=== PATIENT | female | born 1940 | race Caucasian/White ===

== ENCOUNTER 2017-09-25 15:33 | Emergency (ER) | payer MEDICARE, OTHER ==
[~2017-09-25] VITALS: Ht 160 cm; Wt 65.0 kg
[~2017-09-25 15:33] MED LIST: ALPR1TAB3 PO; ARIC10TA PO; BUSP10 PO; PROM25TA5 PO; TEMA30CA PO; ULTR50TA PO
[2017-09-25 15:42] VITALS: BP 135/81; PULSE 82; RESP 16; TEMP 98.1; O2SAT 98
--- NOTE | 2017-09-25 15:48 | PD ---
HPI Chief Complaint: Fall Time Seen by Provider: 15:47 Travel History International Travel<30 days: No Contact w/Intl Traveler<30days: No Traveled to known affect area: No History of Present Illness HPI 76-year-old female was [facility] after she fell and hit her head. Patient has history of frequent falls mainly for dizziness. Her granddaughter is here who says that she refuses to use her walker. Patient is not complaining of anything else besides some pain on the scalp region where she hit her head. Vital signs are stable. [facility] Past Medical History Narrative Medical List of her past medical, surgical, social and family history is reviewed from the nursing note. Autoimmune Disease: No Anxiety: Yes Depression: Yes Cancer: Yes (melanoma) Cardiovascular Problems: Yes (HTN) High Cholesterol: Yes Chemotherapy: No Dementia: Yes Diabetes: No Diminished Hearing: No Endocrine: No Genitourinary: No Hypertension: Yes Immune Disorder: No Musculoskeletal: No Neurologic: Yes (VERTIGO) Psychiatric: Yes Reproductive: No Respiratory: No Immunizations Current: Yes Radiation Therapy: No Tetanus Vaccination: > 5 Years Influenza Vaccination: No ?: Not Menopausal: Yes : 3 Para: 3 Past Surgical History Abdominal Surgery: Yes (gull bladder removal) Cholecystectomy: Yes Eye Surgery: Yes (CATARACT) Gynecologic Surgery: Yes (partial hyst.) Hysterectomy: Yes Pacemaker: No Social History Alcohol Use: No Tobacco Use: No ( HX SNUFF DAILY) Substance Use: No Allergies-Medications (Allergen,Severity, Reaction): Coded Allergies: penicillin G (Unverified Allergy, Severe, 09/25/17) HIVES morphine (Unverified Allergy, Mild, 09/25/17) Comments List of her allergies reviewed from the nursing note. Reported Meds & Prescriptions Reported Meds & Active Scripts Active Reported Xanax (Alprazolam) 1 Mg Tab 1 Mg PO BID PRN Robafen Dm 100-10 mg/5Ml (Dextromethorphan-Guaifenesin) 100 Mg-10 Mg/5 Ml Syp 10 Ml PO Q6HR PRN Meclizine (Meclizine HCl) 12.5 Mg Tab 12.5 Mg PO BID 21 Days Phenergan (Promethazine HCl) 25 Mg Tablet 25 Mg PO TID PRN Remeron (Mirtazapine) 15 Mg Tab 15 Mg PO HS Lisinopril 10 Mg Tab 10 Mg PO DAILY Synthroid (Levothyroxine Sodium) 25 Mcg Tab 25 Mcg PO DAILY Aricept (Donepezil HCl) 10 Mg Tablet 10 Mg PO HS Celexa (Citalopram Hydrobromide) 20 Mg Tab 20 Mg PO DAILY Buspirone (Buspirone HCl) 10 Mg Tab 10 Mg PO BID Lipitor (Atorvastatin Calcium) 10 Mg Tab 10 Mg PO HS Aspirin 325 Mg Tab 325 Mg PO DAILY [place] (Hydrocodone-Acetaminophen) 5 Mg-325 Mg Tab 1 Tab PO Q6H PRN Enema Disposable (Sodium Phosphates) 19 Gram-7 Gram/118 Ml Yue 1 Applic RECTAL ON 4TH DAY PRN Milk of Magnesia Liq (Magnesium Hydroxide) 400 Mg/5 Ml Susp 30 Ml PO PRN Dulcolax Supp (Bisacodyl) 10 Mg Supp 10 Mg RECTAL DAILY PRN Narrative Medication List of her home medications reviewed from the nursing note. Review of Systems Except as stated in HPI: all other systems reviewed are Neg Physical Exam Narrative GENERAL: Awake, alert, elderly SKIN: Focused skin assessment warm/dry. HEAD: Tender on the left occipital area EYES: Pupils equal and round. No scleral icterus. No injection or drainage. ENT: No nasal bleeding or discharge. Mucous membranes pink and moist. NECK: Trachea midline. No JVD. CARDIOVASCULAR: Regular rate and rhythm. No murmur appreciated. RESPIRATORY: No accessory muscle use. Clear to auscultation. Breath sounds equal bilaterally. GASTROINTESTINAL: Abdomen soft, non-tender, nondistended. Hepatic and splenic margins not palpable. MUSCULOSKELETAL: No obvious deformities. No clubbing. No cyanosis. No edema. NEUROLOGICAL: Awake and alert. No obvious cranial nerve deficits. Motor grossly within normal limits. Normal speech. PSYCHIATRIC: Appropriate mood and affect; insight and judgment normal. Data Data Last Documented VS Orders Orders Ct Brain W/O Iv Contrast(Rout) (09/25/17 ) Acetaminophen (Tylenol) (09/25/17 19:00) [facility] Medical Decision Making Medical Screen Exam Complete: Yes Emergency Medical Condition: Yes Medical Record Reviewed: Yes Differential Diagnosis Intracranial bleed, skull fracture, hematoma Narrative Course 6:[address] is negative. Patient will be [facility] back to the [facility]. Procedures EKG Prior to Arrival: No Diagnosis Primary Impression: Frequent falls Additional Impression: Head injury Qualified Codes: S09.90XA - Unspecified injury of head, initial encounter Referrals: Primary Care Physician Additional Instructions: Should use a walker for ambulating since he had such frequent falls. Return to the ER if condition worsens or any other new concerns. Otherwise follow-up with your primary care. Disposition: 01 DISCHARGE HOME Condition: Stable Chelly Scales MD Sep 25, 2017 15:48
[2017-09-25] MEDS ORDERED: ARIC10TA9 PO (16:55)
[2017-09-25] MEDS ORDERED: REME15TA PO (16:55)
[2017-09-25] MEDS ORDERED: LIPI10TA PO (16:55)
[2017-09-25] MEDS ORDERED: LISI10TA3 PO (16:55)
[2017-09-25] MEDS ORDERED: PROM25TA10 PO (16:55)
[2017-09-25] MEDS ORDERED: MECL12.574 PO (16:55)
[2017-09-25] MEDS ORDERED: BUSP10TA PO (16:55)
[2017-09-25] MEDS ORDERED: XANA1TAB2 PO (16:55)
[2017-09-25] MEDS ORDERED: CELE20TA PO (16:55)
[2017-09-25] MEDS ORDERED: DULC10SU3 RECTAL (16:55)
[2017-09-25] MEDS ORDERED: ASPI-183 PO (16:55)
[2017-09-25] MEDS ORDERED: SYNT25TA PO (16:55)
[2017-09-25] MEDS ORDERED: NORC5TAB PO (16:55)
[2017-09-25] MEDS ORDERED: MILKSUS PO (16:55)
[2017-09-25] MEDS ORDERED: ROBA100S PO (16:55)
[2017-09-25] MEDS ORDERED: ENEMENE5 RECTAL (16:55)
--- NOTE | 2017-09-25 17:59 | RADRPT ---
EXAM DATE/TIME: 09/25/2017 17:47 [facility] COMPARISON: CT BRAIN W/O CONTRAST, October 11, 2015, 3:28. INDICATIONS : Head pain due to fall out of bed. RADIATION DOSE: 33.45 CTDIvol (mGy) MEDICAL HISTORY : Dementia. Hypertension. Vertigo. SURGICAL HISTORY : Cholecystectomy. Hysterectomy.Melanoma ENCOUNTER: Initial ACUITY: 1 day PAIN SCALE: 3/10 LOCATION: Bilateral cranial TECHNIQUE: Multiple contiguous axial images were obtained of the head. Using automated exposure control and adj ustment of the mA and/or kV according to patient size, radiation dose was kept as low as reasonably a chievable to obtain optimal diagnostic quality images. DICOM format image data is available electro nically for review and comparison. FINDINGS: There is patchy mild diminished attenuation in periventricular white matter which appears stable and benign. No evidence of intracranial hemorrhage or mass. There is nothing to suggest acute infarction. Ventricles and extra-axial sulcal spaces are symmetric and stable. Extracranial structures are benig n and intact. CONCLUSION: No acute intracranial injury Con Ovalles MD on September 25, 2017 at 17:56 Board Certified Radiologist. This report was verified electronically.
[2017-09-25] MEDS ORDERED: ACETAMINOPHEN 325 MG TAB PO ONE (19:00)
== END 2017-09-25 19:36 | disposition home or self-care (01) ==
LOC: NEPC 15:33
DX: S09.90XA Unspecified injury of head, initial encounter (principal); R29.6 Repeated falls; W06.XXXA Fall from bed, initial encounter; Y92.129 Unspecified place in nursing home as the place of occurrence of the external cause
CPT/HCPCS: 70450; 99284

== ENCOUNTER 2017-10-29 18:58 | Inpatient (IN) | payer MEDICARE ==
[~2017-10-29] VITALS: Ht 154.9 cm; Wt 66.8 kg
[~2017-10-29 18:58] MED LIST changes: -ALPR1TAB3 PO; -ARIC10TA PO; +ARIC10TA9 PO; +ASPI-183 PO; -BUSP10 PO; +BUSP10TA PO; +CELE20TA PO; +DULC10SU3 RECTAL; +ENEMENE5 RECTAL; +LIPI10TA PO; +LISI10TA3 PO; +MECL12.574 PO; +MILKSUS PO; +NORC5TAB PO; +PROM25TA10 PO; -PROM25TA5 PO; +REME15TA PO; +ROBA100S PO; +SYNT25TA PO; -TEMA30CA PO; -ULTR50TA PO; +XANA1TAB2 PO
[2017-10-29 19:19] VITALS: BP 126/61; PULSE 69; RESP 18; TEMP 97.8; O2SAT 99
[2017-10-29] MEDS ORDERED: SODIUM CHLORIDE 0.9% FLUSH 10 ML FLUSH IV FLUSH PRN ×2 (19:45→22:00)
[2017-10-29] MEDS ORDERED: DIPHTH/TETANUS/ACEL PERTUSSIS (BOOSTER) 0.5 ML VIAL/PFS IM ONE (19:45)
[2017-10-29] MEDS ORDERED: ACETAMINOPHEN 325 MG TAB PO ONE (19:45)
--- NOTE | 2017-10-29 20:12 | PD ---
HPI Chief Complaint: Fall Time Seen by Provider: 19:26 Travel History International Travel<30 days: No Contact w/Intl Traveler<30days: No Traveled to known affect area: No History of Present Illness HPI Patient is a 76-year-old female who presents to emergency room via [facility] for evaluation of right elbow injury. Patient reports that she was getting out of her car when she fell and landed onto her right elbow. Denies loc, denies trauma to her head/neck. Patient reports that the brunt of her fall was onto her right elbow. Patient does take an aspirin daily - she currently is not on any other anticoagulants. Denies chest pain/sob. Denies abdominal pain. Reports pain only to her right elbow. PFSH Past Medical History Autoimmune Disease: No Anxiety: Yes Depression: Yes Cancer: Yes (melanoma) Cardiovascular Problems: Yes (HTN) High Cholesterol: Yes Chemotherapy: No Cerebrovascular Accident: Yes (AU[place]UST) Dementia: Yes Diabetes: No Diminished Hearing: No Endocrine: No Genitourinary: No Hypertension: Yes Immune Disorder: No Musculoskeletal: No Neurologic: Yes (VERTIGO) Psychiatric: Yes Reproductive: No Respiratory: No Immunizations Current: Yes Radiation Therapy: No Menopausal: Yes : 3 Para: 3 Past Surgical History Abdominal Surgery: Yes (gall bladder removal) Cholecystectomy: Yes Eye Surgery: Yes (CATARACT) Gynecologic Surgery: Yes (partial hyst.) Hysterectomy: Yes Pacemaker: No Social History Alcohol Use: No Tobacco Use: No ( HX SNUFF DAILY) Substance Use: No Allergies-Medications (Allergen,Severity, Reaction): Coded Allergies: penicillin G (Unverified Allergy, Severe, 10/29/17) HIVES morphine (Unverified Allergy, Mild, 10/29/17) Reported Meds & Prescriptions Reported Meds & Active Scripts Active Reported Xanax (Alprazolam) 1 Mg Tab 1 Mg PO BID PRN Robafen Dm 100-10 mg/5Ml (Dextromethorphan-Guaifenesin) 100 Mg-10 Mg/5 Ml Syp 10 Ml PO Q6HR PRN Meclizine (Meclizine HCl) 12.5 Mg Tab 12.5 Mg PO BID 21 Days Phenergan (Promethazine HCl) 25 Mg Tablet 25 Mg PO TID PRN Remeron (Mirtazapine) 15 Mg Tab 15 Mg PO HS Lisinopril 10 Mg Tab 10 Mg PO DAILY Synthroid (Levothyroxine Sodium) 25 Mcg Tab 25 Mcg PO DAILY Aricept (Donepezil HCl) 10 Mg Tablet 10 Mg PO HS Celexa (Citalopram Hydrobromide) 20 Mg Tab 20 Mg PO DAILY Buspirone (Buspirone HCl) 10 Mg Tab 10 Mg PO BID Lipitor (Atorvastatin Calcium) 10 Mg Tab 10 Mg PO HS Aspirin 325 Mg Tab 325 Mg PO DAILY [place] (Hydrocodone-Acetaminophen) 5 Mg-325 Mg Tab 1 Tab PO Q6H PRN Enema Disposable (Sodium Phosphates) 19 Gram-7 Gram/118 Ml Yue 1 Applic RECTAL ON 4TH DAY PRN Milk of Magnesia Liq (Magnesium Hydroxide) 400 Mg/5 Ml Susp 30 Ml PO PRN Dulcolax Supp (Bisacodyl) 10 Mg Supp 10 Mg RECTAL DAILY PRN Review of Systems General / Constitutional: No: Fever Eyes: No: Visual changes HENT: No: Headaches Cardiovascular: No: Chest Pain or Discomfort Respiratory: No: Shortness of Breath Gastrointestinal: No: Abdominal Pain Genitourinary: No: Dysuria Musculoskeletal: Positive: Limited ROM, Pain (right elbow) Skin: No Rash Neurologic: No: Weakness Psychiatric: No: Depression Endocrine: No: Polydipsia Hematologic/Lymphatic: No: Easy Bruising Physical Exam Narrative GENERAL: moderate distress SKIN: Focused skin assessment warm/dry. HEAD: Atraumatic. Normocephalic. EYES: Pupils equal and round. No scleral icterus. No injection or drainage. ENT: No nasal bleeding or discharge. Mucous membranes pink and moist. NECK: Trachea midline. No JVD. CARDIOVASCULAR: Regular rate and rhythm. No murmur appreciated. RESPIRATORY: No accessory muscle use. Clear to auscultation. Breath sounds equal bilaterally. GASTROINTESTINAL: Abdomen soft, non-tender, nondistended. Hepatic and splenic margins not palpable. MUSCULOSKELETAL:Patient with obvious deformity to right elbow with small laceration. pain with rom to right shoulder and right elbow, normal rom to right wrist and digits of fingers, pulses intact, neurovascularly intact LUE: normal exam NEUROLOGICAL: Awake and alert. No obvious cranial nerve deficits. Motor grossly within normal limits. Normal speech. PSYCHIATRIC: Appropriate mood and affect; insight and judgment normal. Data Data Last Documented VS Vital Signs Date Time Temp Pulse Resp B/P (MAP) Pulse Ox O2 Delivery O2 Flow Rate FiO2 10/29/17 19:23 69 18 99 Room Air 10/29/17 19:19 97.8 126/61 (82) Orders Orders Elbow, Complete (4 Vws) (10/29/17 ) Acetaminophen (Tylenol) (10/29/17 19:45) Basic Metabolic Panel (Bmp) (10/29/17 19:36) Complete Blood Count With Diff (10/29/17 19:36) Prothrombin Time / Inr (Pt) (10/29/17 19:36) Act Partial Throm Time (Ptt) (10/29/17 19:36) Iv Access Insert/Monitor (10/29/17 19:36) Ecg Monitoring (10/29/17 19:36) Oximetry (10/29/17 19:36) NPO (10/29/17 19:36) Sodium Chloride 0.9% Flush (Ns Flush) (10/29/17 19:45) Chest, Single Ap (10/29/17 19:36) [id number]-Rfgdyb (Booster) Inj (Boostrix (10/29/17 19:45) Shoulder, One View (10/29/17 ) Cefazolin 2 Gm Premix (Ancef 2 Gm Premix (10/29/17 21:15) Propofol 200 Mg/20 Ml Inj (Diprivan 200 (10/29/17 21:15) Consult Orthopedic (10/29/17 ) Admit Order (Ed Use Only) (10/29/17 21:18) (Hub Use Only)Inp Phy Cons/Ref (10/29/17 ) Labs Laboratory Tests Test 10/29/17 19:40 10/29/17 20:40 White Blood Count 10.1 TH/MM3 Red Blood Count 3.37 MIL/MM3 Hemoglobin 10.5 GM/DL Hematocrit 30.7 % Mean Corpuscular Volume 91.1 FL Mean Corpuscular Hemoglobin 31.2 PG Mean Corpuscular Hemoglobin Concent 34.3 % Red Cell Distribution Width 12.4 % Platelet Count 312 TH/MM3 Mean Platelet Volume 7.7 FL Neutrophils (%) (Auto) 54.6 % Lymphocytes (%) (Auto) 31.9 % Monocytes (%) (Auto) 8.6 % Eosinophils (%) (Auto) 4.1 % Basophils (%) (Auto) 0.8 % Neutrophils # (Auto) 5.5 TH/MM3 Lymphocytes # (Auto) 3.2 TH/MM3 Monocytes # (Auto) 0.9 TH/MM3 Eosinophils # (Auto) 0.4 TH/MM3 Basophils # (Auto) 0.1 TH/MM3 CBC Comment DIFF FINAL Differential Comment Blood Urea Nitrogen 37 MG/DL Creatinine 2.75 MG/DL Random Glucose 104 MG/DL Calcium Level 9.3 MG/DL Sodium Level 134 MEQ/L Potassium Level 4.6 MEQ/L Chloride Level 101 MEQ/L Carbon Dioxide Level 24.7 MEQ/L Anion Gap 8 MEQ/L Estimat Glomerular Filtration Rate 17 ML/MIN MDM Medical Decision Making Medical Screen Exam Complete: Yes Emergency Medical Condition: Yes Interpretation(s) Vital Signs Date Time Temp Pulse Resp B/P (MAP) Pulse Ox O2 Delivery O2 Flow Rate FiO2 10/29/17 19:23 69 18 99 Room Air 10/29/17 19:19 97.8 69 18 126/61 (82) 99 Differential Diagnosis elbow fracture, shoulder fx/sprain, pneumothorax Narrative Course During the course of the patients emergency department visit, the patients history, examination, and differential diagnosis were reviewed with the patient. The patient was placed on a wireless consultant with oximetry and frequent blood pressure monitoring. The patient had an IV access obtained and blood work sent for analysis. The patient was initially provided acetaminophen for fever. The patients laboratory studies were reviewed and remarkable for: CBC & BMP Diagram 10/29/17 19:40 Calcium Level 9.3 Radiology studies were reviewed and remarkable for Last Impressions Chest X-Ray 10/29/17 1936 Signed Impressions: Service Date/Time: Sunday, October 29, 2017 20:10 - CONCLUSION: Possible mild case of pulmonary edema. Karla Rueda MD Shoulder X-Ray 10/29/17 0000 Signed Impressions: Service Date/Time: Sunday, October 29, 2017 20:08 - CONCLUSION: Unremarkable study. Karla Rueda MD Elbow X-Ray 10/29/17 0000 Signed Impressions: Service Date/Time: Sunday, October 29, 2017 20:05 - CONCLUSION: Comminuted and complex fracture dislocation. Karla Rueda MD Patient with alisha as well as open fx to right elbow. i reviewed all studies with patient and her family. she will require admission to the hospital. case reviewed with Dr. Tao - request reduction in the ER, plan for OR in the AM. Dr. Rinaldi was called - he is not taking call today, request admission to be given to or [facility] Case reviewed with Dr. Cleaning who accepts pt to service Procedures Procedure Narrative After the risks and benefits were discussed the following procedure was performed: MODERATE SEDATION: The patient was placed on a wireless consultant and pulse oximetry. An ambu bag and suction was immediately available at bedside. The patient was monitored by the nurse. Oxygen saturation , heart rate and blood pressure were monitored. Procedural sedation was acheived using 50mg of propofol . The patient was observed until awake and alert. Procedural Sedation time in attendance was 20 minutes. Right elbow reduction: Patient was placed into supine position, patient's forearm was supinated with elbow flexed with direct pressure placed on the tip of the olecranon. elbow was reduced but unstable. After elbow was reduced, patient was placed in splint. Reduction was partially successful, due to instability of joint, another attempt at reduction was not performed. Diagnosis Primary Impression: Fracture, humerus, distal, open Qualified Codes: S42.491B - Other displaced fracture of lower end of right humerus, initial encounter for open fracture Additional Impression: Renal insufficiency Admitting Information Admitting Physician Requests: Observation Anette Cooper DO Oct 29, 2017 20:12
[2017-10-29 20:20] LABS: AUTOMATED NEUTROPHIL # 5.5 TH/MM3 (1.8-7.7); BASOPHIL # 0.1 TH/MM3 (0-0.2); BASOPHIL % 0.8 % (0.0-2.0); EOSINOPHIL # 0.4 TH/MM3 (0-0.4); EOSINOPHIL % 4.1 % (0.0-4.0); HEMATOCRIT 30.7 % (35.0-46.0); HEMOGLOBIN 10.5 GM/DL (11.6-15.3); LYMPH % 31.9 % (9.0-44.0); LYMPHOCYTE # 3.2 TH/MM3 (1.0-4.8); MEAN CELL VOLUME 91.1 FL (80.0-100.0); MEAN CORPUSCULAR HEMOGLOBIN 31.2 PG (27.0-34.0); MEAN CORPUSCULAR HGB CONC 34.3 % (32.0-36.0); MEAN PLATELET VOLUME 7.7 FL (7.0-11.0); MONO % 8.6 % (0.0-8.0); MONOCYTE # 0.9 TH/MM3 (0-0.9); NEUT % 54.6 % (16.0-70.0); PLATELET COUNT 312 TH/MM3 (150-450); RED BLOOD COUNT 3.37 MIL/MM3 (4.00-5.30); RED CELL DISTRIBUTION WIDTH 12.4 % (11.6-17.2); WHITE BLOOD COUNT 10.1 TH/MM3 (4.0-11.0)
[2017-10-29 20:38] LABS: BICARBONATE 24.7 MEQ/L (21.0-32.0); CALCIUM 9.3 MG/DL (8.5-10.1); CREATININE 2.75 MG/DL (0.50-1.00)
--- NOTE | 2017-10-29 20:48 | RADRPT ---
EXAM DATE/TIME: 10/29/2017 20:05 [facility] COMPARISON: No previous studies available for comparison. INDICATIONS : Fall today. Right posterior elbow pain. MEDICAL HISTORY : None. SURGICAL HISTORY : None. ENCOUNTER: Initial ACUITY: 1 day PAIN SCORE: 10/10 LOCATION: Right elbow. FINDINGS: There is a complex comminuted fracture of distal humerus which extends intra-articularly with displac ement of fracture fragments. There is overriding of the metaphysis dorsal to ulna with significant di splacement/dislocation in addition to significant joint effusion and soft tissue swelling. CONCLUSION: Comminuted and complex fracture dislocation. Karla Rueda MD on October 29, 2017 at 20:43 Board Certified Radiologist. This report was verified electronically.
--- NOTE | 2017-10-29 20:48 | RADRPT ---
EXAM DATE/TIME: 10/29/2017 20:08 [facility] COMPARISON: No previous studies available for comparison. INDICATIONS : Fall Today. Trauma. MEDICAL HISTORY : None. SURGICAL HISTORY : None. ENCOUNTER: Initial ACUITY: 1 day PAIN SCORE: 2/10 LOCATION: Right shoulder. FINDINGS: No definite fractures, or dislocations are identified. No definite lytic or sclerotic lesion is seen . CONCLUSION: Unremarkable study. Karla Rueda MD on October 29, 2017 at 20:46 Board Certified Radiologist. This report was verified electronically.
--- NOTE | 2017-10-29 20:49 | RADRPT ---
EXAM DATE/TIME: 10/29/2017 20:10 [facility] COMPARISON: No previous studies available for comparison. INDICATIONS : Fall Today. Trauma MEDICAL HISTORY : None. SURGICAL HISTORY : None. ENCOUNTER: Initial ACUITY: 1 day PAIN SCORE: 0/10 LOCATION: Bilateral chest. FINDINGS: There is mild degree of perivascular haziness may represent slight pulmonary edema. Focal consolidati on is not seen. Heart and mediastinum are unremarkable for technique. There are atherosclerotic calci fications of the aorta due to chronic atherosclerotic disease. CONCLUSION: Possible mild case of pulmonary edema. Karla Rueda MD on October 29, 2017 at 20:47 Board Certified Radiologist. This report was verified electronically.
[2017-10-29] MEDS ORDERED: ceFAZolin 2 GM PREMIX 50 ML IV ONE (21:15)
[2017-10-29] MEDS ORDERED: PROPOFOL 200 MG/20 ML AMP IV ONE (21:15)
--- NOTE | 2017-10-29 21:54 | HHI.HP ---
HPI Service Family Medicine Primary Care Physician Michael Rinaldi MD Admission Diagnosis open distal humerus fracture, renal insuffiency Diagnoses: International Travel<30 Days: No Contact w/Intl Traveler<30days: No Known Affected Area: No History of Present Illness 76 yr old F w/ PMHx of Alz's dementia,frequent falls, depression, and HTN presents to the ED via [facility] due to fall. Accompanied by daughter and niece. Limited history provided by patient due to dementia. Rest of the history provided by family. She reports that she was getting out of the car when she slipped and fell on the road. She is unsure how she fell. She has a bruise on her face, pain in her right arm, and scraps on her right knee. She is able to wiggle her right fingers and has intact sensation. She denies LOC or hitting her head. She endorses slight HOYT. She denies vision changes, CP, N/V, SOB, and abdominal pain. Last meal was around 1300. Niece states that she has a hx of intermittent leg weakness and suspects this is the cause of the incident. Review of Systems ROS Limitations: Other (Dementia) Constitutional: DENIES: Fever, Weight loss, Dizziness Eyes: DENIES: Blurred vision Ears, nose, mouth, throat: DENIES: Vertigo, Throat pain, Ear Pain Respiratory: DENIES: Shortness of breath Cardiovascular: DENIES: Chest pain Gastrointestinal: DENIES: Abdominal pain, Nausea, Vomiting Genitourinary: DENIES: Dysuria Musculoskeletal: COMPLAINS OF: Joint pain (right elbow pain) Hematologic/lymphatic: COMPLAINS OF: Bruising (bruises due to fall ) Neurologic: COMPLAINS OF: Headache (mild HOYT ) Past Family Social History Past Medical History Alz's Dementia HTN Anxiety HLD Herniated discs Claustrophobia Currently being workup by outpatient for paroxysmal afib Stroke in July 2017 Hypothyroidism Past Surgical History Eye surgery Hysterectomy Back surgery Allergies: Coded Allergies: penicillin G (Unverified Allergy, Severe, 10/29/17) HIVES morphine (Unverified Allergy, Mild, 10/29/17) Family History Depression Mom in 80s from lung cancer Dad in 90s from Alz's dementia Social History Lives alone with . Unable to do ADLs and IADLs. Sister lives nearby Has 1 cat and 1 dog Former smoker, 1ppd for 13 years, quit years ago Admits to Dipping Denies alcohol and illicit drug use Physical Exam Vital Signs Vital Signs Date Time Temp Pulse Resp B/P (MAP) Pulse Ox O2 Delivery O2 Flow Rate FiO2 10/29/17 19:23 69 18 99 Room Air 10/29/17 19:19 97.8 69 18 126/61 (82) 99 Physical Exam GENERAL: pleasant, elderly female, lying in bed, in NAD SKIN: bruise on right cheek, abrasions on right elbow, small abrasion on right cárdenas HEAD: Atraumatic. Normocephalic. No temporal or scalp tenderness. EYES: Pupils equal round and reactive. Extraocular motions intact. No scleral icterus. No injection or drainage. ENT: Nose without bleeding, purulent drainage or septal hematoma. Throat without erythema, tonsillar hypertrophy or exudate. Uvula midline. Airway patent. Poor dentition due dipping. NECK: Trachea midline. No JVD or lymphadenopathy. Supple, nontender, no meningeal signs. CARDIOVASCULAR: RRR, soft systolic murmur heard greater in aortic area RESPIRATORY: Clear to auscultation. Breath sounds equal bilaterally. No wheezes , rales, or rhonchi. GASTROINTESTINAL: Abdomen soft, non-tender, nondistended. No hepato-splenomegaly , or palpable masses. No guarding. MUSCULOSKELETAL: open fracture of right elbow, patient able to wiggle right fingers, sensation intact in right hand, radial pulse 2+, capillary refill < 2 secs NEUROLOGICAL: Awake and alert. Cranial nerves II through XII intact. Motor and sensory grossly within normal limits. Five out of 5 muscle strength in all muscle groups. Normal speech. Laboratory Laboratory Tests Test 10/29/17 19:40 10/29/17 20:40 White Blood Count 10.1 Red Blood Count 3.37 Hemoglobin 10.5 Hematocrit 30.7 Mean Corpuscular Volume 91.1 Mean Corpuscular Hemoglobin 31.2 Mean Corpuscular Hemoglobin Concent 34.3 Red Cell Distribution Width 12.4 Platelet Count 312 Mean Platelet Volume 7.7 Neutrophils (%) (Auto) 54.6 Lymphocytes (%) (Auto) 31.9 Monocytes (%) (Auto) 8.6 Eosinophils (%) (Auto) 4.1 Basophils (%) (Auto) 0.8 Neutrophils # (Auto) 5.5 Lymphocytes # (Auto) 3.2 Monocytes # (Auto) 0.9 Eosinophils # (Auto) 0.4 Basophils # (Auto) 0.1 CBC Comment DIFF FINAL Differential Comment Blood Urea Nitrogen 37 Creatinine 2.75 Random Glucose 104 Calcium Level 9.3 Sodium Level 134 Potassium Level 4.6 Chloride Level 101 Carbon Dioxide Level 24.7 Anion Gap 8 Estimat Glomerular Filtration Rate 17 Result Diagram: 10/29/17193910/29/171939 Imaging Last Impressions Chest X-Ray 10/29/17 1936 Signed Impressions: Service Date/Time: Sunday, October 29, 2017 20:10 - CONCLUSION: Possible mild case of pulmonary edema. Karla Rueda MD Shoulder X-Ray 10/29/17 0000 Signed Impressions: Service Date/Time: Sunday, October 29, 2017 20:08 - CONCLUSION: Unremarkable study. Karla Rueda MD Elbow X-Ray 10/29/17 0000 Signed Impressions: Service Date/Time: Sunday, October 29, 2017 20:05 - CONCLUSION: Comminuted and complex fracture dislocation. Karla Rueda MD [place] VTE Risk Assessment Caprini VTE Risk Assessment: Mod/High Risk (score >= 2) Caprini Risk Assessment Model Point Value = 1 Point Value = 2 Point Value = 3 Point Value = 5 Age 41-60 Minor surgery BMI > 25 kg/m2 Swollen legs Varicose veins or History of unexplained or recurrent spontaneous Oral contraceptives or hormone replacement Sepsis (< 1 month) Serious lung disease, including pneumonia (< 1 month) Abnormal pulmonary function Acute myocardial infarction Congestive heart failure (< 1 month) History of inflammatory bowel disease Medical patient at bed rest Age 61-74 Arthroscopic surgery Major open surgery (> 45 min) Laparoscopic surgery (> 45 min) Malignancy Confined to bed (> 72 hours) Immobilizing plaster cast Central venous access Age >= 75 History of VTE Family history of VTE Factor V Leiden Prothrombin [id number] Lupus anticoagulant Anticardiolipin antibodies Elevated serum homocysteine Heparin-induced thrombocytopenia Other congenital or acquired thrombophilia Stroke (< 1 month) Elective arthroplasty Hip, pelvis, or leg fracture Acute spinal cord injury (< 1 month) Prophylaxis Regimen Total Risk Factor Score Risk Level Prophylaxis Regimen 0-1 Low Early ambulation 2 Moderate Order ONE of the following: *Sequential Compression Device (SCD) *Heparin 5000 units SQ BID 3-4 Higher Order ONE of the following medications: *Heparin 5000 units SQ TID *Enoxaparin/Lovenox 40 mg SQ daily (WT < 150 kg, CrCl > 30 mL/min) *Enoxaparin/Lovenox 30 mg SQ daily (WT < 150 kg, CrCl > 10-29 mL/min) *Enoxaparin/Lovenox 30 mg SQ BID (WT < 150 kg, CrCl > 30 mL/min) AND/OR *Sequential Compression Device (SCD) 5 or more Highest Order ONE of the following medications: *Heparin 5000 units SQ TID (Preferred with Epidurals) *Enoxaparin/Lovenox 40 mg SQ daily (WT < 150 kg, CrCl > 30 mL/min) *Enoxaparin/Lovenox 30 mg SQ daily (WT < 150 kg, CrCl > 10-29 mL/min) *Enoxaparin/Lovenox 30 mg SQ BID (WT < 150 kg, CrCl > 30 mL/min) AND *Sequential Compression Device (SCD) Assessment and Plan Assessment and Plan 76 yr old F w/ PMHx of Alz's dementia and frequent falls admitted for open R distal humerus fracture. Code Status Full Code Discussed Condition With Dr. Cooper and Dr. Cleaning Problem List: (1) Fracture, humerus, distal, open ICD Codes: S42.409B - Unspecified fracture of lower end of unspecified humerus , initial encounter for open fracture Status: Acute Plan: Elbow X-ray demonstrated comminuted and complex fracture dislocation. * s/p right elbow reduction by ED physician * ED spoke with Dr. Tao, surgery in the AM * NPO after midnight * IV Tylenol q6h MISTI for pain * Oxycodone 5mg PO q4h for pain 3-5 * Oxycodone 10mg PO q4h for pain 6-10 * NS 100mls/ hr * Patient has soft systolic murmur on exam, most likely aortic stenosis. Patient has moderate- high risk of having cardiac every during/after surgery. Dr. Cleaning discussed case with Dr. Tao and family. (2) VELMA (acute kidney injury) ICD Codes: N17.9 - Acute kidney failure, unspecified Status: Acute Plan: Elevated BUN and Cr. Continue to trend BMP. Hydrate with MIVFs Continue renally dose meds (3) Dementia ICD Codes: F03.90 - Unspecified dementia without behavioral disturbance Status: Chronic Plan: Continue home Donepezil 10mg PO hs (4) HTN (hypertension) ICD Codes: I10 - Essential (primary) hypertension Plan: Continue home lisinopril 10mg PO daily (5) Depression ICD Codes: F32.9 - Major depressive disorder, single episode, unspecified Plan: Continue home med: Citalopram 20mg PO daily, Mirtazapine 15mg PO hs (6) Anxiety ICD Codes: F41.9 - Anxiety disorder, unspecified Plan: Continue home buspirone 10mg PO bid, Alprazolam 1mg PO bid PRN (7) Hypothyroidism ICD Codes: E03.9 - Hypothyroidism, unspecified Plan: Continue home Levothyroxine 25 mcg PO daily (8) HLD (hyperlipidemia) ICD Codes: E78.5 - Hyperlipidemia, unspecified Plan: Continue home atorvastatin 10mg PO hs (9) Nutrition, metabolism, and development symptoms ICD Codes: R63.8 - Other symptoms and signs concerning food and fluid intake Physician Certification 2 Midnight Certification Type: Admission for Inpatient Services Order for Inpatient Services The services are ordered in accordance with Medicare regulations or non- Medicare payer requirements, as applicable. In the case of services not specified as inpatient-only, they are appropriately provided as inpatient services in accordance with the 2-midnight benchmark. Estimated LOS (days): 2 2 days is the estimated time the patient will need to remain in the hospital, assuming treatment plan goals are met and no additional complications. Post-Hospital Plan: Home Problem Qualifiers (1) Fracture, humerus, distal, open: Qualified Codes: S42.491B - Other displaced fracture of lower end of right humerus, initial encounter for open fracture Maris Humphreys MD R1 Oct 29, 2017 21:54
[2017-10-29] MEDS ORDERED: SENNOSIDES 8.6 MG TAB PO PRN (22:00)
[2017-10-29] MEDS ORDERED: NALOXONE HCL 0.4 MG/ML AMP IV PUSH PRN (22:00)
[2017-10-29] MEDS ORDERED: ALPRAZolam 1 MG TAB PO PRN (22:00)
[2017-10-29] MEDS ORDERED: MAGNESIUM HYDROXIDE SUSP 30 ML CUP PO PRN (22:00)
[2017-10-29] MEDS ORDERED: ONDANSETRON HCL 4 MG/2 ML VIAL IVP PRN (22:00)
[2017-10-29] MEDS ORDERED: BISACODYL 10 MG SUPP RECTAL PRN (22:00)
[2017-10-29] MEDS ORDERED: LACTULOSE SYRUP 20 GM/30 ML CUP PO PRN (22:00)
--- NOTE | 2017-10-29 22:23 | RADRPT ---
EXAM DATE/TIME: 10/29/2017 22:01 [facility] COMPARISON: ELBOW RIGHT COMPLETE (4 VWS), October 29, 2017, 20:05. INDICATIONS : Post reduction. MEDICAL HISTORY : None. SURGICAL HISTORY : None. ENCOUNTER: Subsequent ACUITY: 1 day PAIN SCORE: 9/10 LOCATION: Right upper extremity FINDINGS: Extensive comminuted and complex intra-articular fracture of distal radius is again seen and the disl ocation and overriding has partially been reduced since the prior exam. CONCLUSION: Partial reduction of previously seen overriding and dislocated fragments. Karla Rueda MD on October 29, 2017 at 22:20 Board Certified Radiologist. This report was verified electronically.
[2017-10-29 22:35] LABS: PROTHROMBIN TIME - PATIENT 10.1 SEC (9.8-11.6)
[2017-10-30] VITALS (9 sets, daily range): BP systolic 114–137; BP diastolic 52–75; PULSE 72–82; RESP 15–20; TEMP 96.1–97.1; O2SAT 93–99
[2017-10-30] MEDS: ACETAMINOPHEN 1000 MG/100 ML 100 ML IV SCH ×5 (00:13→21:29)
[2017-10-30] MEDS: SODIUM CHLOR 0.45% 1000 ML INJ 1,000 ML IV SCH ×3 (00:15→14:15)
[2017-10-30] MEDS ORDERED: LACTATED RINGER'S 1000 ML IV PRN (00:30)
[2017-10-30] MEDS ORDERED: CHLORHEXIDINE GLUCONATE 2 % 1 PACK (2 CLOTHS) TOPICAL PRN (00:30)
[2017-10-30] MEDS ORDERED: SODIUM CHLORID 0.9% 500 ML IV PRN (00:30)
[2017-10-30] MEDS ORDERED: POVIDONE IODINE 5% (ANTISEPSIS KIT) 4 APPLICATIONS EACH NARE PRN (00:30)
--- NOTE | 2017-10-30 01:21 | RADRPT ---
EXAM DATE/TIME: 10/30/2017 00:56 [facility] COMPARISON: ELBOW RIGHT LIMITED (AP & LAT), October 29, 2017, 22:01. INDICATIONS : Fall, Evaluate fracture. RADIATION DOSE: 15.62 CTDIvol (mGy) MEDICAL HISTORY : Cerebrovascular disease. Cardiovascular disease Hypertension.Melanoma SURGICAL HISTORY : Cholecystectomy. Hysterectomy. ENCOUNTER: Initial ACUITY: 1 day PAIN SCALE: 10/10 LOCATION: Right elbow TECHNIQUE: Volumetric scanning of the elbow was performed. Using automated exposure control and adjustment of t he mA and/or kV according to patient size, radiation dose was kept as low as reasonably achievable to obtain optimal diagnostic quality images. DICOM format image data is available electronically for r eview and comparison. FINDINGS: A highly comminuted fracture involving the distal humerus is observed. The capitellum and trochlea awad ve been rotated anteriorly. Their articular surfaces remain in contact with the associated articulati ons of the radius and ulna. The proximal radius and ulna are intact. Air is seen throughout the adjac ent soft tissues. CONCLUSION: Highly comminuted distal humeral fracture as detailed above. Nader Love Jr., MD on October 30, 2017 at 1:17 Board Certified Radiologist. This report was verified electronically.
[2017-10-30] MEDS: LEVOTHYROXINE SODIUM 25 MCG TAB PO SCH (06:00)
[2017-10-30 06:21] LABS: HEMATOCRIT 26.5 % (35.0-46.0); HEMOGLOBIN 9.3 GM/DL (11.6-15.3); MEAN CELL VOLUME 91.8 FL (80.0-100.0); MEAN CORPUSCULAR HEMOGLOBIN 32.2 PG (27.0-34.0); MEAN CORPUSCULAR HGB CONC 35.1 % (32.0-36.0); MEAN PLATELET VOLUME 7.4 FL (7.0-11.0); PLATELET COUNT 278 TH/MM3 (150-450); RED BLOOD COUNT 2.88 MIL/MM3 (4.00-5.30); RED CELL DISTRIBUTION WIDTH 12.3 % (11.6-17.2)
[2017-10-30 06:43] LABS: BICARBONATE 25.7 MEQ/L (21.0-32.0); CALCIUM 8.8 MG/DL (8.5-10.1); CREATININE 2.31 MG/DL (0.50-1.00)
--- NOTE | 2017-10-30 06:44 | PD.ORT.PN ---
Subjective Subjective Remarks s/p fall at home hx of alzheimers and stroke affecting right side. patient confused and does not recall injury. daughter in room and is primary historian. Objective Vitals Vital Signs Date Time Temp Pulse Resp B/P (MAP) Pulse Ox O2 Delivery O2 Flow Rate FiO2 10/30/17 02:25 96.1 78 15 114/60 (78) 93 10/30/17 00:20 96.1 77 16 123/58 (79) 96 10/29/17 19:23 69 18 99 Room Air 10/29/17 19:19 97.8 69 18 126/61 (82) 99 I/O 10/29/17 10/29/17 10/29/17 10/30/17 10/30/17 10/30/17 07:00 15:00 23:00 07:00 15:00 23:00 Intake Total 50 ml 200 ml Balance 50 ml 200 ml Intake IV Total 50 ml 200 ml # Voids 1 Result Diagram: 10/30/17 0526 10/29/171939 Other Results Laboratory Tests Test 10/29/17 20:40 Prothromb Time International Ratio 1.0 RATIO Prothrombin Time 10.1 SEC (9.8-11.6) Imaging Last 24 hours Impressions Elbow X-Ray 10/29/172149 Signed Impressions: Service Date/Time: Sunday, October 29, 2017 22:01 - CONCLUSION: Partial reduction of previously seen overriding and dislocated fragments. Karla Rueda MD Chest X-Ray 10/29/17 1936 Signed Impressions: Service Date/Time: Sunday, October 29, 2017 20:10 - CONCLUSION: Possible mild case of pulmonary edema. Karla Rueda MD Objective Remarks RUE: +long arm splint. intact. full sensation to median/ulnar nerve distribution Assessment & Plan Assessment and Plan 1) Right Distal Humerus Fx -npo -OR today for I&D and possible ORIF Kam Castle/Director Clinical Research [facility] Oct 30, 2017 06:44
[2017-10-30] MEDS ORDERED: VITA2000 PO (06:46)
[2017-10-30] MEDS ORDERED: CALCTAB19 PO (06:46)
[2017-10-30] MEDS ORDERED: VITA500012 PO (06:46)
[2017-10-30] MEDS ORDERED: HYDR-3580 PO (06:46)
[2017-10-30] MEDS ORDERED: VANCOMYCIN HCL 1000 MG VIAL ONE (07:01)
[2017-10-30] MEDS ORDERED: GENTAMICIN SULFATE 80 MG/2 ML VIAL ONE ×2 (07:01→08:57)
[2017-10-30] MEDS: DOCUSATE SODIUM 50 MG/SENNA 8.6 MG TAB PO SCH ×2 (07:31→21:28)
[2017-10-30] MEDS: CITALOPRAM HYDROBROMIDE 20 MG TAB PO SCH (07:31)
[2017-10-30] MEDS: SODIUM CHLORIDE 0.9% FLUSH 10 ML FLUSH IV FLUSH SCH ×2 (07:31→21:00)
[2017-10-30] MEDS ORDERED: CLINDAMYCIN PHOS 600 MG/4 ML VIAL ONE (08:57)
[2017-10-30] MEDS ORDERED: busPIRone HCL 10 MG TAB PO SCH (09:00)
[2017-10-30] MEDS ORDERED: LISINOPRIL 10 MG TAB PO SCH (09:00)
[2017-10-30] MEDS ORDERED: ASPIRIN 325 MG TAB PO SCH (09:00)
[2017-10-30] MEDS ORDERED: DEXAMETHASONE SOD PHOS 4 MG/ML VIAL ONE (09:39)
--- NOTE | 2017-10-30 10:57 | PD.OP ---
cc: Iggy Dallas MD Operative Report Date of Surgery: Oct 30, 2017 Preoperative Diagnosis: Comminuted intra-articular open right distal humerus fracture Postoperative Diagnosis: Procedure: Irrigation and debridement of open fracture, Open reduction internal fixation right distal humerus fracture, application of wound VAC dressing Anesthesia: Gen. Surgeon: Iggy Dallas Mail Sorter(s): PRASANNA Anderson PA-C The surgical procedure was assisted by my physician credentialing assistant. My P.A. presence was necessary throughout this case for the manipulation and positioning of the surgical extremity. My P.A. was assisting me throughout the duration of this procedure. The skill set of a physician credentialing assistant was medically necessary to complete this procedure. During the surgical case the certified surgical assistant was working at the back table and the physician credentialing assistant was directly assisting me. Operation and Findings: Patient was seen and evaluated preoperatively. Treatment options were discussed regarding comminuted intra-articular right distal humerus fracture including surgical and nonsurgical treatments. After detailed discussion of risk and benefits of procedure patient and her family wishes to proceed with surgery. Risks of surgery include bleeding, wound complications, loss of motion , infection, nonunion, malunion, painful hardware, loss of motion of shoulder and elbow, weakness and numbness of arm, ulnar nerve injury as well as medical competitions including blood clots stroke and . Patient was brought to operating room and placed on the OR table. GETA was administered by anesthesiologist. Patient was positioned in lateral decubitus position. Extremities were well-padded. Axillary roll was placed. Operative arm and shoulder were prepped with alcohol followed by Hibiclens and draped usual sterile fashion. Timeout procedure was performed. IV antibiotics were given prior to incision. A standard posterior approach was utilized. Subcutaneous tissues was dissected with Bovie. The lateral border of the triceps was elevated off of the distal humerus. Fracture site was visualized. Next, the ulnar nerve was identified and protected throughout the procedure. The nerve was intact. The fracture was identified along the medial distal humerus. Soft tissue was removed from the fracture site. Attention was now turned towards irrigation and debridement of the open fracture. Fracture site was cleaned with curettes and rongeurs. Overall the wound was clean. Soft tissue and bone were now thoroughly irrigated with 3 L of sterile saline. At this point the fracture was reduced using fracture tenaculums. The large medial fragment was reduced first. There was comminution of the articular surface. Because of patient's age and poor skin condition decision was made not to perform an ulnar osteotomy. 2 small fragments of bone were removed from the joint. The lateral portion of the joint was now reduced. K wires were used to hold provisional fixation. Multiplanar fluoroscopy confirmed excellent of fracture. Synthes distal humerus plates were selected. The medial plate was provisionally held the bone with K wires. 3.5 cortical screws were placed to compress plate to bone. Multiple 2.7 locking screws were placed distally. Care was taken to keep screws from penetrating the articular surface. Multiple screws were placed in each side of the fracture. All screws were predrilled and premeasured for appropriate length. Next the lateral plate was placed along the posterior lateral humerus. Plate was provisionally held to bone with K wires. 3.5 cortical screws were used to compress plate to bone. Additional 2.7 locking screws were placed distally. K wires were removed. Final fluoroscopy revealed excellent alignment of fracture with well-placed hardware. Incision was thoroughly irrigated. Fascia was closed with #1 Vicryl, subcutaneous tissues closed with 3-0 PDS, and skin was closed with 3-0 nylon and susi. Patient had very thin skin. Decision was made to apply a wound VAC dressing over the incision. Wound VAC was sealed appropriately. Sterile dressings were applied with a well-padded splint. Needle and sponge counts were correct. Patient was placed into a sling, and then transferred to recovery room in stable condition Iggy Dallas MD Oct 30, 2017 10:57
[2017-10-30] MEDS ORDERED: MORPHINE SULFATE 4 MG/ML INJ IV PUSH PRN (11:00)
[2017-10-30] MEDS ORDERED: DO NOT ADM ANY ANTICOAGULANT DRUGS PRN (11:06)
[2017-10-30] MEDS ORDERED: MIDAZOLAM HCL 2 MG/2 ML VIAL ONE (11:17)
[2017-10-30] MEDS ORDERED: ARTIFICIAL TEARS OPTH OINT 3.5 APPLIC/3.5 GM TUBO ONE (11:18)
--- NOTE | 2017-10-30 11:31 | RADRPT ---
EXAM DATE/TIME: 10/30/2017 10:24 [facility] COMPARISON: ELBOW RIGHT LIMITED (AP & LAT), October 29, 2017, 22:01. INDICATIONS : Right elbow open reduction internal fixation. MEDICAL HISTORY : Dementia. Hypertension. Vertigo. SURGICAL HISTORY : Cholecystectomy. Hysterectomy.Melanoma ENCOUNTER: Initial ACUITY: 1 day PAIN SCORE: Non-responsive. LOCATION: Right elbow FINDINGS: Side plate and multiple screws traverse the distal humerus with excellent anatomical alignment of the fracture fragments. CONCLUSION: Intact postsurgical changes for technique. Karla Rueda MD on October 30, 2017 at 11:29 Board Certified Radiologist. This report was verified electronically.
--- NOTE | 2017-10-30 11:33 | MB ---
cc: IGGY PHILLIPS DATE OF CONSULTATION 10/30/2017 REASON FOR CONSULTATION Open right distal humerus fracture. CONSULTING PHYSICIAN Dr. Shanda Willett HISTORY Celeste is a 76-year-old female who has a history of mild dementia. She lives at home with family. She does have frequent falls. She also has a history of hypertension. She fell yesterday and landed on her right arm. She was getting out the car when she lost her balance. She denies dizziness, syncope or loss of consciousness. She had severe right arm pain. She presented to the emergency room where she was found to have a small laceration over the fracture site. She was found to have an open fracture of her right distal humerus. She has been admitted for treatment of this injury. She is currently awake and alert on the orthopedic floor. MEDICAL HISTORY ILLNESSES 1. Alzheimer's dementia 2. Hypertension 3. Anxiety 4. High cholesterol 5. History of CVA and atrial fibrillation PAST SURGICAL HISTORY 1. Eye surgery 2. Hysterectomy 3. Lumbar decompression ALLERGIES PENICILLIN AND MORPHINE FAMILY HISTORY Positive for lung cancer in her mother and Alzheimer's disease in her father. SOCIAL HISTORY The patient lives at home with her . She quit smoking years ago. She denies alcohol use. REVIEW OF SYSTEMS The patient denies headache, visual changes, neck pain, chest pain, shortness of breath, abdominal pain, nausea, vomiting or recent weight loss, numbness or tingling of her extremities. She denies fevers or chills. She complains of right arm pain. Pain is worse with movement. PHYSICAL EXAMINATION The patient is a thin 76-year-old female. She is awake. She is in no acute distress. She answers most questions appropriately. VITAL SIGNS: Temperature 96.2, pulse 80, respirations 16, blood pressure 115/52, O2 sat 97% on room air. HEAD: The patient is normocephalic. EYES: Pupils are equal. NECK: Soft and nontender. Trachea is midline. ABDOMEN: Soft, nontender, nondistended. EXTREMITIES: Examination of the right arm reveals no tenderness around her shoulder. She has grossly intact sensation in radial, ulnar, and median nerve distributions. She has pain with any attempted elbow motion. She has a small abrasion over her elbow with a 1-cm laceration. Radial pulse is palpable. Examination of the left arm reveals no pain with shoulder, elbow or wrist motion. She has intact sensation in all fingers. She has good cap refill fingers. Skin is intact. Radial pulses palpable. Examination of bilateral lower extremities reveals no pain with hip, knee or ankle motion. Skin is intact to both feet. Dorsalis pedis pulses are palpable. Sensation is intact in both feet. X-RAYS X-rays and CT scan of the right elbow were reviewed. X-rays reveal a severely comminuted intra-articular right distal humerus fracture. IMPRESSION Comminuted open right distal humerus fracture. PLAN Treatment option are discussed with the patient. At this point, I would recommend irrigation and debridement of open fracture with open reduction, internal fixation of right distal humerus. The risks of surgery include bleeding, infection, injury to arteries, nerves and blood vessels, nonunion, malunion, painful hardware, wound complications, elbow stiffness, elbow arthritis as well as medical complications including blood clot, stroke, heart attack and . All questions were answered. I will plan on surgery today. A mid-level provider in my office, nurse practitioner or PA, may see this patient on a follow-up basis and continue to implement the objective of this plan including: Starting or adjusting medications, injections of muscle, tendon, bursa or joints, cast application, orthotic or brace application, physical therapy, further radiographic studies including x-ray, MRI, CT, ultrasounds or bone scan, vascular studies, neurologic studies, or other specialist consultations, and proceeding with surgical management as appropriate. Iggy MD KAREN Adamson/LEONOR /10:48 AM /11:08 AM
[2017-10-30] MEDS ORDERED: Post-op Orders (for Pharmacy) XX ONE (12:00)
[2017-10-30] MEDS: ACETAMINOPHEN/HYDROcodone 325 MG/5 MG TAB PO PRN ×2 (15:15→21:30)
--- NOTE | 2017-10-30 15:38 | HHI.HP ---
[facility] Service Family Medicine Primary Care Physician Michael Rinaldi MD Admission Diagnosis open distal humerus fracture, renal insuffiency Diagnoses: (1) Fracture, humerus, distal, open Diagnosis: Principal (2) VELMA (acute kidney injury) Diagnosis: Principal (3) Dementia Diagnosis: Principal (4) HTN (hypertension) Diagnosis: Principal (5) Depression Diagnosis: Principal (6) Anxiety Diagnosis: Principal (7) Hypothyroidism Diagnosis: Principal (8) HLD (hyperlipidemia) Diagnosis: Principal (9) Nutrition, metabolism, and development symptoms International Travel<30 Days: No Contact w/Intl Traveler<30days: No Known Affected Area: No History of Present Illness Ms Leslie is a 76 yr old F w/ PMHx of Alz's dementia,frequent falls, depression , and HTN presented to the ED via [facility] due to fall. Accompanied by daughter and niece. Limited history provided by patient due to dementia. Rest of the history provided by family. She reports that she was getting out of the car when she slipped and fell on the road. She is unsure how she fell. She has a bruise on her face, pain in her right arm, and scrapes on her right knee. She is able to wiggle her right fingers and has intact sensation. She denies LOC or hitting her head. She endorses slight HOYT. She denies vision changes, CP, N/V, SOB, and abdominal pain. Last meal was around 1300. Niece states that she has a hx of intermittent leg weakness and suspects this is the cause of the incident. She had a CVA last July and has not been the same as far as her functioning. She has variable but at times profound weakness. Today she was seen post op and was complaining of pain in her left hip and right ankle as well as her arm. Discussed with her niece and daughter that she was on multiple meds and she had orthostatic sounding sxs. Review of Systems Other ROS Limitations: Other (Dementia) Constitutional: DENIES: Fever, Weight loss, Dizziness Eyes: DENIES: Blurred vision Ears, nose, mouth, throat: DENIES: Vertigo, Throat pain, Ear Pain Respiratory: DENIES: Shortness of breath Cardiovascular: DENIES: Chest pain Gastrointestinal: DENIES: Abdominal pain, Nausea, Vomiting Genitourinary: DENIES: Dysuria Musculoskeletal: COMPLAINS OF: Joint pain (right elbow pain) Hematologic/lymphatic: COMPLAINS OF: Bruising (bruises due to fall ) Neurologic: COMPLAINS OF: Headache (mild HOYT ) Past Family Social History Past Medical History Alz's Dementia HTN Anxiety HLD Herniated discs Claustrophobia Currently being workup by outpatient for paroxysmal afib Stroke in July 2017 Hypothyroidism Past Surgical History Eye surgery Hysterectomy Back surgery Allergies: Coded Allergies: penicillin G (Unverified Allergy, Severe, 10/29/17) HIVES morphine (Unverified Allergy, Mild, 10/29/17) Family History Depression Mom in 80s from lung cancer Dad in 90s from Alz's dementia Social History Lives alone with . Unable to do ADLs and IADLs. Sister lives nearby Has 1 cat and 1 dog Former smoker, 1ppd for 13 years, quit years ago Admits to Dipping Denies alcohol and illicit drug use Physical Exam Vital Signs Vital Signs Date Time Temp Pulse Resp B/P (MAP) Pulse Ox O2 Delivery O2 Flow Rate FiO2 10/30/17 15:10 96.5 72 16 122/75 (91) 97 10/30/17 12:00 78 18 138/65 (89) 100 Nasal Cannula 2 10/30/17 12:00 96.1 77 17 137/69 (91) 99 10/30/17 11:45 75 18 143/68 (93) 98 Nasal Cannula 2 10/30/17 11:30 78 18 131/63 (85) 100 Nasal Cannula 2 10/30/17 11:11 98.5 84 18 139/63 (88) 99 Nasal Cannula 2 10/30/17 09:35 97 10/30/17 08:00 96.2 80 16 115/52 (73) 97 10/30/17 02:25 96.1 78 15 114/60 (78) 93 10/30/17 00:20 96.1 77 16 123/58 (79) 96 10/29/17 19:23 69 18 99 Room Air 10/29/17 19:19 97.8 69 18 126/61 (82) 99 Physical Exam GENERAL: pleasant, elderly female, lying in bed, sedated after surgery SKIN: bruise on right cheek, abrasions on right elbow, small abrasion on right cárdenas HEAD: Atraumatic. Normocephalic. No temporal or scalp tenderness. EYES: Pupils equal round and reactive. Extraocular motions intact. No scleral icterus. No injection or drainage. ENT: Nose without bleeding, purulent drainage or septal hematoma. Airway patent. Poor dentition due to dipping. NECK: Trachea midline. No JVD or lymphadenopathy. Supple, nontender, no meningeal signs. CARDIOVASCULAR: RRR, soft systolic murmur heard greater in aortic area RESPIRATORY: Clear to auscultation. Breath sounds equal bilaterally. No wheezes , rales, or rhonchi. GASTROINTESTINAL: Abdomen soft, non-tender, nondistended. No hepato-splenomegaly , or palpable masses. No guarding. MUSCULOSKELETAL: open fracture of right elbow, patient able to wiggle right fingers, sensation intact in right hand, radial pulse 2+, capillary refill < 2 secs NEUROLOGICAL: Awake and alert. Cranial nerves II through XII intact. Motor and sensory grossly within normal limits. moves all extremities except for pain with her eft hip and right arm especially. unsure if she has some focal weakness as she could not cooperate fully on her exam Normal speech. Laboratory Laboratory Tests Test 10/29/17 19:40 10/29/17 20:40 10/30/17 05:26 White Blood Count 10.1 9.0 Red Blood Count 3.37 2.88 Hemoglobin 10.5 9.3 Hematocrit 30.7 26.5 Mean Corpuscular Volume 91.1 91.8 Mean Corpuscular Hemoglobin 31.2 32.2 Mean Corpuscular Hemoglobin Concent 34.3 35.1 Red Cell Distribution Width 12.4 12.3 Platelet Count 312 278 Mean Platelet Volume 7.7 7.4 Neutrophils (%) (Auto) 54.6 Lymphocytes (%) (Auto) 31.9 Monocytes (%) (Auto) 8.6 Eosinophils (%) (Auto) 4.1 Basophils (%) (Auto) 0.8 Neutrophils # (Auto) 5.5 Lymphocytes # (Auto) 3.2 Monocytes # (Auto) 0.9 Eosinophils # (Auto) 0.4 Basophils # (Auto) 0.1 CBC Comment DIFF FINAL Differential Comment Blood Urea Nitrogen 37 33 Creatinine 2.75 2.31 Random Glucose 104 103 Calcium Level 9.3 8.8 Sodium Level 134 138 Potassium Level 4.6 5.1 Chloride Level 101 104 Carbon Dioxide Level 24.7 25.7 Anion Gap 8 8 Estimat Glomerular Filtration Rate 17 20 Prothrombin Time 10.1 Prothromb Time International Ratio 1.0 Activated Partial Thromboplast Time LESS THAN 17.2 Result Diagram: 10/30/17 0526 10/30/17525 Imaging Last Impressions Chest X-Ray 10/29/171935 Signed Impressions: Service Date/Time: Sunday, October 29, 2017 20:10 - CONCLUSION: Possible mild case of pulmonary edema. Karla Rueda MD Shoulder X-Ray 10/29/17 0000 Signed Impressions: Service Date/Time: Sunday, October 29, 2017 20:08 - CONCLUSION: Unremarkable study. Karla Rueda MD Elbow X-Ray 10/29/17 0000 Signed Impressions: Service Date/Time: Sunday, October 29, 2017 20:05 - CONCLUSION: Comminuted and complex fracture dislocation. MD Edgar Petty VTE Risk Assessment Kevinringauila VTE Risk Assessment: Mod/High Risk (score >= 2) Caprini Risk Assessment Model Point Value = 1 Point Value = 2 Point Value = 3 Point Value = 5 Age 41-60 Minor surgery BMI > 25 kg/m2 Swollen legs Varicose veins or History of unexplained or recurrent spontaneous Oral contraceptives or hormone replacement Sepsis (< 1 month) Serious lung disease, including pneumonia (< 1 month) Abnormal pulmonary function Acute myocardial infarction Congestive heart failure (< 1 month) History of inflammatory bowel disease Medical patient at bed rest Age 61-74 Arthroscopic surgery Major open surgery (> 45 min) Laparoscopic surgery (> 45 min) Malignancy Confined to bed (> 72 hours) Immobilizing plaster cast Central venous access Age >= 75 History of VTE Family history of VTE Factor V Leiden Prothrombin [id number] Lupus anticoagulant Anticardiolipin antibodies Elevated serum homocysteine Heparin-induced thrombocytopenia Other congenital or acquired thrombophilia Stroke (< 1 month) Elective arthroplasty Hip, pelvis, or leg fracture Acute spinal cord injury (< 1 month) Prophylaxis Regimen Total Risk Factor Score Risk Level Prophylaxis Regimen 0-1 Low Early ambulation 2 Moderate Order ONE of the following: *Sequential Compression Device (SCD) *Heparin 5000 units SQ BID 3-4 Higher Order ONE of the following medications: *Heparin 5000 units SQ TID *Enoxaparin/Lovenox 40 mg SQ daily (WT < 150 kg, CrCl > 30 mL/min) *Enoxaparin/Lovenox 30 mg SQ daily (WT < 150 kg, CrCl > 10-29 mL/min) *Enoxaparin/Lovenox 30 mg SQ BID (WT < 150 kg, CrCl > 30 mL/min) AND/OR *Sequential Compression Device (SCD) 5 or more Highest Order ONE of the following medications: *Heparin 5000 units SQ TID (Preferred with Epidurals) *Enoxaparin/Lovenox 40 mg SQ daily (WT < 150 kg, CrCl > 30 mL/min) *Enoxaparin/Lovenox 30 mg SQ daily (WT < 150 kg, CrCl > 10-29 mL/min) *Enoxaparin/Lovenox 30 mg SQ BID (WT < 150 kg, CrCl > 30 mL/min) AND *Sequential Compression Device (SCD) Assessment and Plan Assessment and Plan 76 yr old F w/ PMHx of Alz's dementia and frequent falls admitted for open R distal humerus fracture. will cut meds as she is on so many sedating meds that could lead to problems. Problem List: (1) Fracture, humerus, distal, open ICD Codes: S42.409B - Unspecified fracture of lower end of unspecified humerus , initial encounter for open fracture Status: Acute Plan: Elbow X-ray demonstrated comminuted and complex fracture dislocation. * s/p right elbow reduction by ED physician * ED spoke with Dr. Tao, surgery in the AM * NPO after midnight, now on diet * IV Tylenol q6h MISTI for pain * Oxycodone 5mg PO q4h for pain 3-5 * Oxycodone 10mg PO q4h for pain 6-10 * NS 100mls/ hr * Patient has soft systolic murmur on exam, most likely aortic stenosis. Patient has moderate- high risk of having cardiac every during/after surgery. Dr. Cleaning discussed case with Dr. Tao and family. (2) VELMA (acute kidney injury) ICD Codes: N17.9 - Acute kidney failure, unspecified Status: Acute Plan: Elevated BUN and Cr. Continue to trend BMP. Hydrate with MIVFs Continue renally dose meds (3) Dementia ICD Codes: F03.90 - Unspecified dementia without behavioral disturbance Status: Chronic Plan: Continue home Donepezil 10mg PO hs (4) HTN (hypertension) ICD Codes: I10 - Essential (primary) hypertension Plan: Continue home lisinopril 10mg PO daily, stop this as her diastolic BPs are low (5) Depression ICD Codes: F32.9 - Major depressive disorder, single episode, unspecified Plan: Continue home med: Citalopram 20mg PO daily, Mirtazapine 15mg PO hs (6) Anxiety ICD Codes: F41.9 - Anxiety disorder, unspecified Plan: Continue home buspirone 10mg PO bid, Alprazolam 1mg PO bid PRN (7) Hypothyroidism ICD Codes: E03.9 - Hypothyroidism, unspecified Plan: Continue home Levothyroxine 25 mcg PO daily (8) HLD (hyperlipidemia) ICD Codes: E78.5 - Hyperlipidemia, unspecified Plan: Continue home atorvastatin 10mg PO hs (9) Nutrition, metabolism, and development symptoms ICD Codes: R63.8 - Other symptoms and signs concerning food and fluid intake Plan: eating now Problem Qualifiers (1) Fracture, humerus, distal, open: Qualified Codes: S42.491B - Other displaced fracture of lower end of right humerus, initial encounter for open fracture (2) Dementia: Qualified Codes: G30.1 - Alzheimer's disease with late onset; F02.80 - Dementia in other diseases classified elsewhere without behavioral disturbance (3) HTN (hypertension): Qualified Codes: I10 - Essential (primary) hypertension (4) Depression: Qualified Codes: F32.9 - Major depressive disorder, single episode, unspecified (5) Hypothyroidism: Qualified Codes: E03.9 - Hypothyroidism, unspecified (6) HLD (hyperlipidemia): Qualified Codes: E78.00 - Pure hypercholesterolemia, unspecified Shanda Willett MD Oct 30, 2017 15:38
[2017-10-30] MEDS: CLINDAMYCIN 600 MG/NS PREMIX 50 ML IV SCH (15:49)
--- NOTE | 2017-10-30 16:24 | OTSOAPIP ---
TIME SESSION COMPLETED: TREATMENT TIME: 0 MINS. CHART REVIEWED. O: ATTEMPTED TO SEE FOR OT EVALUATION, HOWEVER PT OFF FLOOR FOR SURGERY. Therapist: IRCKY LOVE OT/L Signature on file
--- NOTE | 2017-10-30 16:53 | RADRPT ---
EXAM DATE/TIME: 10/30/2017 16:36 [facility] COMPARISON: No previous studies available for comparison. INDICATIONS : Fall. Left hip pain. MEDICAL HISTORY : None. SURGICAL HISTORY : None. ENCOUNTER: Initial ACUITY: 2 days PAIN SCORE: 8/10 LOCATION: Left pelvis FINDINGS: Examination of the left hip was performed with AP Pelvis. The primary and secondary trabecular patte rn of the femoral neck is intact. The hip joint is of normal width without significant sclerosis or bony hypertrophy. The acetabulum is grossly intact. CONCLUSION: 1. There is no evidence of acute fracture. Gilson Avalos MD on October 30, 2017 at 16:50 Board Certified Radiologist. This report was verified electronically.
--- NOTE | 2017-10-30 17:04 | RADRPT ---
EXAM DATE/TIME: 10/30/2017 16:36 [facility] COMPARISON: No previous studies available for comparison. INDICATIONS : Fall. Right ankle pain. MEDICAL HISTORY : None. SURGICAL HISTORY : None. ENCOUNTER: Initial ACUITY: 2 days PAIN SCORE: 8/10 LOCATION: Right lateral FINDINGS: Soft tissue swelling is present over the lateral malleolus. There is no evidence of acute fracture. B val mineralization is normal. An inferior calcaneal spur is present. CONCLUSION: Soft tissue swelling as above. If clinical symptoms persist followup examinations could be considere d if clinically indicated. Gilson Avalos MD on October 30, 2017 at 17:02 Board Certified Radiologist. This report was verified electronically.
--- NOTE | 2017-10-30 17:58 | EKG ---
Date Performed: 10/30/2017 Time Performed: 04:15:20 PTAGE: 76 years EKG: Sinus rhythm Severe right axis deviation Inferior/lateral T wave changes may be due to myocardial ischemia Abnorm al ECG PREVIOUS TRACING : 10/11/2015 02.34 Compared to prior tracing no significant change DOCTOR: Genaro Rivera Interpretating Date/Time 10/30/2017 17:57:04
[2017-10-30] MEDS: MIRTAZAPINE 15 MG TAB PO SCH (21:28)
[2017-10-30] MEDS: DONEPEZIL HCL 5 MG TAB PO SCH (21:28)
[2017-10-30] MEDS: CALCIUM/VITAMIN D 250 MG/125 U TAB PO SCH (21:28)
[2017-10-30] MEDS: ATORVASTATIN 10 MG TAB PO SCH (21:29)
[2017-10-30] MEDS: busPIRone HCL 5 MG TAB PO SCH (21:30)
[2017-10-31] VITALS: BP 131/65; PULSE 70; RESP 20; TEMP 98; O2SAT 100
[2017-10-31] MEDS: CLINDAMYCIN 600 MG/NS PREMIX 50 ML IV SCH ×3 (01:57→17:00)
[2017-10-31 03:38] VITALS: BP 125/67; PULSE 67; RESP 16; TEMP 96.5; O2SAT 98
[2017-10-31] MEDS: ACETAMINOPHEN 1000 MG/100 ML 100 ML IV SCH ×4 (03:41→22:08)
[2017-10-31] MEDS: ACETAMINOPHEN/HYDROcodone 325 MG/5 MG TAB PO PRN ×3 (03:42→22:08)
[2017-10-31] MEDS: LEVOTHYROXINE SODIUM 25 MCG TAB PO SCH (05:40)
--- NOTE | 2017-10-31 06:42 | PD.ORT.PN ---
Subjective Subjective Remarks POD 1 s/p ORIF right distal humerus and incision wound vac application slightly confused. reports pain Objective Vitals Vital Signs Date Time Temp Pulse Resp B/P (MAP) Pulse Ox O2 Delivery O2 Flow Rate FiO2 10/31/17 03:38 96.5 67 16 125/67 (86) 98 10/31/17 00:00 98.0 70 20 131/65 (87) 100 10/30/17 20:51 98 Nasal Cannula 2.00 10/30/17 20:00 97.1 82 20 114/59 (77) 96 10/30/17 17:03 98 Nasal Cannula 2.00 10/30/17 15:10 96.5 72 16 122/75 (91) 97 10/30/17 12:00 78 18 138/65 (89) 100 Nasal Cannula 2 10/30/17 12:00 96.1 77 17 137/69 (91) 99 10/30/17 11:45 75 18 143/68 (93) 98 Nasal Cannula 2 10/30/17 11:30 78 18 131/63 (85) 100 Nasal Cannula 2 10/30/17 11:11 98.5 84 18 139/63 (88) 99 Nasal Cannula 2 10/30/17 09:35 97 10/30/17 08:00 96.2 80 16 115/52 (73) 97 I/O 10/30/17 10/30/17 10/30/17 10/31/17 10/31/17 10/31/17 07:00 15:00 23:00 07:00 15:00 23:00 Intake Total 200 ml 1223 ml 320 ml 1394 ml Output Total 80 ml 500 ml 1000 ml Balance 200 ml 1143 ml -180 ml 394 ml Intake Oral 0 ml 220 ml IV Total 200 ml 123 ml 100 ml 1394 ml Other 1100 ml Output Urine Total 500 ml 1000 ml Drainage Total 0 ml 0 ml Estimated Blood Loss 80 ml Bladder Scan Volume Amount 999 ml # Voids 1 2 # Bowel Movements 0 0 Result Diagram: 10/30/17 0510/30/17 05 Imaging Last 24 hours Impressions Elbow X-Ray 10/29/17 6010 Signed Impressions: Service Date/Time: Sunday, October 29, 2017 22:01 - CONCLUSION: Partial reduction of previously seen overriding and dislocated fragments. KAlta Rueda MD Chest X-Ray 10/29/171935 Signed Impressions: Service Date/Time: Sunday, October 29, 2017 20:10 - CONCLUSION: Possible mild case of pulmonary edema. Karla Rueda MD Objective Remarks RUE: +long arm splint. intact. full sensation to median/ulnar nerve distribution. +vac with good seal Assessment & Plan Assessment and Plan 1) Right Distal Humerus Fx s/p ORIF - POD 1 -NWB -maintain splint at all times -maintain vac -plan to DC vac at bedside sunday -CM for SNF placement -f/u with [facility] or PA in 2 weeks Kam Castle/Electrophysiology Tech [facility] Oct 31, 2017 06:41
[2017-10-31 08:00] VITALS: BP 135/67; PULSE 68; RESP 18; TEMP 96; O2SAT 99
[2017-10-31] MEDS: DOCUSATE SODIUM 50 MG/SENNA 8.6 MG TAB PO SCH ×2 (09:00→22:08)
[2017-10-31] MEDS: CALCIUM/VITAMIN D 250 MG/125 U TAB PO SCH ×2 (09:00→22:09)
[2017-10-31] MEDS: busPIRone HCL 5 MG TAB PO SCH (09:01)
[2017-10-31] MEDS: CITALOPRAM HYDROBROMIDE 20 MG TAB PO SCH (09:01)
[2017-10-31] MEDS: CHOLECALCIFEROL (VIT D3) 1000 UNIT TAB PO SCH (09:01)
[2017-10-31] MEDS: SODIUM CHLORIDE 0.9% FLUSH 10 ML FLUSH IV FLUSH SCH ×2 (09:08→22:07)
--- NOTE | 2017-10-31 10:54 | HHI.FPPN ---
Subjective Remarks Patient seen and examined at 0845. Doing well except her right arm still hurts. Pain overall well controlled. Tolerating diet without difficulty. No CP/SOB. (Chalino Cleaning MD) Objective Vitals Vital Signs Date Time Temp Pulse Resp B/P (MAP) Pulse Ox O2 Delivery O2 Flow Rate FiO2 10/31/17 08:00 96.0 68 18 135/67 (89) 99 10/31/17 03:38 96.5 67 16 125/67 (86) 98 10/31/17 00:00 98.0 70 20 131/65 (87) 100 10/30/17 20:51 98 Nasal Cannula 2.00 10/30/17 20:00 97.1 82 20 114/59 (77) 96 10/30/17 17:03 98 Nasal Cannula 2.00 10/30/17 15:10 96.5 72 16 122/75 (91) 97 10/30/17 12:00 78 18 138/65 (89) 100 Nasal Cannula 2 10/30/17 12:00 96.1 77 17 137/69 (91) 99 10/30/17 11:45 75 18 143/68 (93) 98 Nasal Cannula 2 10/30/17 11:30 78 18 131/63 (85) 100 Nasal Cannula 2 10/30/17 11:11 98.5 84 18 139/63 (88) 99 Nasal Cannula 2 I/O 10/30/17 10/30/17 10/30/17 10/31/17 10/31/17 10/31/17 07:00 15:00 23:00 07:00 15:00 23:00 Intake Total 200 ml 1223 ml 320 ml 1394 ml Output Total 80 ml 500 ml 1000 ml Balance 200 ml 1143 ml -180 ml 394 ml Intake Oral 0 ml 220 ml IV Total 200 ml 123 ml 100 ml 1394 ml Other 1100 ml Output Urine Total 500 ml 1000 ml Drainage Total 0 ml 0 ml Estimated Blood Loss 80 ml Bladder Scan Volume Amount 999 ml # Voids 1 2 # Bowel Movements 0 0 (Chalino Cleaning MD) Result Diagram: 10/30/17 0526 10/30/17 0526 Imaging Last Impressions Hip and Pelvis X-Ray 10/30/17 0000 Signed Impressions: Service Date/Time: Monday, October 30, 2017 16:36 - CONCLUSION: 1. There is no evidence of acute fracture. Gilson Avalos MD Elbow X-Ray 10/30/17 0000 Signed Impressions: Service Date/Time: Monday, October 30, 2017 10:24 - CONCLUSION: Intact postsurgical changes for technique. Karla Rueda MD Ankle X-Ray 10/30/17 0000 Signed Impressions: Service Date/Time: Monday, October 30, 2017 16:36 - CONCLUSION: Soft tissue swelling as above. If clinical symptoms persist followup examinations could be considered if clinically indicated. Gilson Avalos MD Chest X-Ray 10/29/17 193 Signed Impressions: Service Date/Time: Sunday, October 29, 2017 20:10 - CONCLUSION: Possible mild case of pulmonary edema. Karla Rueda MD Upper Extremity CT 10/29/17 0000 Signed Impressions: Service Date/Time: Monday, October 30, 2017 00:56 - CONCLUSION: Highly comminuted distal humeral fracture as detailed above. Nader Love Jr., MD Shoulder X-Ray 10/29/17 0000 Signed Impressions: Service Date/Time: Sunday, October 29, 2017 20:08 - CONCLUSION: Unremarkable study. Karla Rueda MD Objective Remarks GEN: Thin, well-nourished elderly white female sitting up in bed, comfortable, NAD LUNGS: CTAB CV: NRRR, no MRG ABD: Soft, NDNT MSK: R arm wrapped in EDWIN bandage with wound vac draining sanguinous fluid. BLE without cyanosis or edema Procedures ORIF R distal humerus: 10/30/17 (Chalino Cleaning MD) A/P Assessment and Plan 76 yr old F w/ PMHx of Alz's dementia and frequent falls presenting with: (Chalino Cleaning MD) Attending Attestation Patient seen and examined. Case reviewed and discussed with the resident team. Agree with plan of care as discussed with me and documented in the resident note. agree with tapering or discontinuing meds on her as she is elderly and frail and on multiple meds (Shanda Willett MD) Problem List: (1) Fracture, humerus, distal, open ICD Codes: S42.409B - Unspecified fracture of lower end of unspecified humerus , initial encounter for open fracture Status: Acute Plan: Elbow X-ray demonstrated comminuted and complex fracture dislocation. s/p right elbow reduction by ED physician s/p right ORIF on 10/30/17 * IV Tylenol q6h MISTI for pain * Oxycodone 5mg PO q4h for pain 3-5 * Oxycodone 10mg PO q4h for pain 6-10 * Orthopedics consulted, appreciate recs -NWB -maintain splint at all times -maintain vac -plan to DC vac at bedside sunday - for SNF placement -f/u with [facility] or [facility] in 2 weeks (2) VELMA (acute kidney injury) ICD Codes: N17.9 - Acute kidney failure, unspecified Status: Resolved Plan: Elevated BUN and Cr, probably pre-renal etiology. Baseline ~1.4 Continue to trend BMP Hydrate with IVF Continue renally dose meds Check CPK (3) Dementia ICD Codes: F03.90 - Unspecified dementia without behavioral disturbance Status: Chronic Plan: Continue home Donepezil 10mg PO hs (4) HTN (hypertension) ICD Codes: I10 - Essential (primary) hypertension Plan: Hold home lisinopril due to VELMA, DBP low (5) Depression ICD Codes: F32.9 - Major depressive disorder, single episode, unspecified Status: Chronic Plan: Continue home med: Citalopram 20mg PO daily, Mirtazapine 15mg PO hs (6) Anxiety ICD Codes: F41.9 - Anxiety disorder, unspecified Status: Chronic Plan: Tapered home buspar, continue lorazpeam at lower dose 0.5 mg PO bid PRN (7) Hypothyroidism ICD Codes: E03.9 - Hypothyroidism, unspecified Status: Chronic Plan: Continue home Levothyroxine 25 mcg PO daily (8) HLD (hyperlipidemia) ICD Codes: E78.5 - Hyperlipidemia, unspecified Status: Chronic Plan: Continue home atorvastatin 10mg PO hs (9) Nutrition, metabolism, and development symptoms ICD Codes: R63.8 - Other symptoms and signs concerning food and fluid intake Plan: Fluids: NS @ 100 cc/hr Elecs: Monitor and replete PRN Nutrition: Diet regular basic DVT: SCDs bilateral knee high Code status: FULL CODE (Chalino Cleaning MD) Problem Qualifiers (1) Fracture, humerus, distal, open: Qualified Codes: S42.491B - Other displaced fracture of lower end of right humerus, initial encounter for open fracture (2) Dementia: Qualified Codes: G30.1 - Alzheimer's disease with late onset; F02.80 - Dementia in other diseases classified elsewhere without behavioral disturbance (3) HTN (hypertension): Qualified Codes: I10 - Essential (primary) hypertension (4) Depression: Qualified Codes: F32.9 - Major depressive disorder, single episode, unspecified (5) Hypothyroidism: Qualified Codes: E03.9 - Hypothyroidism, unspecified (6) HLD (hyperlipidemia): Qualified Codes: E78.00 - Pure hypercholesterolemia, unspecified Chalino Cleaning MD Oct 31, 2017 10:54 Shanda Willett MD Nov 03, 2017 13:44
[2017-10-31] MEDS: SODIUM CHLOR 0.9% 1000 ML INJ 1,000 ML IV SCH ×2 (11:00→21:00)
[2017-10-31 12:00] VITALS: BP 109/52; PULSE 69; RESP 18; TEMP 97.8; O2SAT 97
[2017-10-31 15:01] LABS: CALCIUM 8.2 MG/DL (8.5-10.1); CREATININE 1.98 MG/DL (0.50-1.00)
[2017-10-31] MEDS: DONEPEZIL HCL 5 MG TAB PO SCH (18:27)
[2017-10-31 20:00] VITALS: BP 122/58; PULSE 67; RESP 20; TEMP 98.7; O2SAT 100
[2017-10-31 20:48] VITALS: O2SAT 97
[2017-10-31] MEDS: ATORVASTATIN 10 MG TAB PO SCH (22:08)
[2017-10-31] MEDS: MIRTAZAPINE 15 MG TAB PO SCH (22:08)
[2017-11-01] VITALS (7 sets, daily range): BP systolic 139–156; BP diastolic 64–77; PULSE 63–79; RESP 17–22; TEMP 96.2–98.6; O2SAT 93–100
[2017-11-01] MEDS: CLINDAMYCIN 600 MG/NS PREMIX 50 ML IV SCH ×2 (00:53→09:05)
[2017-11-01] MEDS: ACETAMINOPHEN 1000 MG/100 ML 100 ML IV SCH ×4 (04:00→20:45)
[2017-11-01] MEDS: LEVOTHYROXINE SODIUM 25 MCG TAB PO SCH (05:28)
[2017-11-01] MEDS: ACETAMINOPHEN/HYDROcodone 325 MG/5 MG TAB PO PRN ×3 (05:29→17:28)
--- NOTE | 2017-11-01 06:55 | PD.ORT.PN ---
Subjective Subjective Remarks POD 2 s/p ORIF right distal humerus and incision wound vac application slightly confused. reports pain Objective Vitals Vital Signs Date Time Temp Pulse Resp B/P (MAP) Pulse Ox O2 Delivery O2 Flow Rate FiO2 11/01/17 04:00 98.6 63 20 156/77 (103) 100 11/01/17 00:00 97.3 79 22 142/64 (90) 100 10/31/17 20:48 97 10/31/17 20:00 98.7 67 20 122/58 (79) 100 10/31/17 12:00 97.8 69 18 109/52 (71) 97 10/31/17 08:00 96.0 68 18 135/67 (89) 99 I/O 10/31/17 10/31/17 10/31/17 11/01/17 11/01/17 11/01/17 07:00 15:00 23:00 07:00 15:00 23:00 Intake Total 1394 ml 240 ml 1949 ml Output Total 1000 ml 0 ml 2000 ml Balance 394 ml 240 ml 0 ml -51 ml Intake Oral 240 ml 960 ml IV Total 1394 ml 989 ml Output Urine Total 1000 ml 2000 ml Drainage Total 0 ml 0 ml 0 ml # Voids 5 # Bowel Movements 1 Result Diagram: 10/30/17 0526 10/31/17 1422 Imaging Last 24 hours Impressions Elbow X-Ray 10/29/17 2150 Signed Impressions: Service Date/Time: Sunday, October 29, 2017 22:01 - CONCLUSION: Partial reduction of previously seen overriding and dislocated fragments. Karla Rueda MD Chest X-Ray 10/29/17 1936 Signed Impressions: Service Date/Time: Sunday, October 29, 2017 20:10 - CONCLUSION: Possible mild case of pulmonary edema. Karla Rueda MD Objective Remarks RUE: +long arm splint. intact. full sensation to median/ulnar nerve distribution. +vac with good seal Assessment & Plan Assessment and Plan 1) Right Distal Humerus Fx s/p ORIF - POD 2 -NWB -maintain splint at all times -maintain vac -plan to DC vac at bedside sunday -CM for SNF placement -f/u with [facility] or PA in 2 weeks Kam Castle PA/Welding Operator PA Nov 01, 2017 06:55
[2017-11-01] MEDS: SODIUM CHLOR 0.9% 1000 ML INJ 1,000 ML IV SCH ×2 (07:00→17:00)
[2017-11-01] MEDS: DOCUSATE SODIUM 50 MG/SENNA 8.6 MG TAB PO SCH ×2 (08:17→20:46)
[2017-11-01] MEDS: CALCIUM/VITAMIN D 250 MG/125 U TAB PO SCH ×2 (08:17→20:46)
[2017-11-01] MEDS: CITALOPRAM HYDROBROMIDE 20 MG TAB PO SCH (08:17)
[2017-11-01] MEDS: CHOLECALCIFEROL (VIT D3) 1000 UNIT TAB PO SCH (08:17)
[2017-11-01] MEDS: SODIUM CHLORIDE 0.9% FLUSH 10 ML FLUSH IV FLUSH SCH ×2 (09:05→20:46)
[2017-11-01 09:24] LABS: HEMOGLOBIN 10.3 GM/DL (11.6-15.3); MEAN CELL VOLUME 92.3 FL (80.0-100.0); MEAN CORPUSCULAR HEMOGLOBIN 30.6 PG (27.0-34.0); MEAN CORPUSCULAR HGB CONC 33.1 % (32.0-36.0); MEAN PLATELET VOLUME 7.4 FL (7.0-11.0); PLATELET COUNT 296 TH/MM3 (150-450); RED BLOOD COUNT 3.36 MIL/MM3 (4.00-5.30); RED CELL DISTRIBUTION WIDTH 12.9 % (11.6-17.2); WHITE BLOOD COUNT 12.4 TH/MM3 (4.0-11.0)
[2017-11-01 09:58] LABS: BICARBONATE 25.8 MEQ/L (21.0-32.0); CALCIUM 9.1 MG/DL (8.5-10.1); CREATININE 1.65 MG/DL (0.50-1.00)
--- NOTE | 2017-11-01 10:18 | HHI.FPPN ---
Subjective Remarks Saw and examined patient this morning. Patient states that she is doing well. She learning how to use her left hand to do everything since she is right- handed. She is working with PT and OT to build up her strength and is looking forward to going to rehab to get better. No CP, no shortness of breath, no abdominal pain. Her pain is well controlled. (Janette Vogt MD R1) Objective Vitals Vital Signs Date Time Temp Pulse Resp B/P (MAP) Pulse Ox O2 Delivery O2 Flow Rate FiO2 11/01/17 09:11 93 11/01/17 04:00 98.6 63 20 156/77 (103) 100 11/01/17 00:00 97.3 79 22 142/64 (90) 100 10/31/17 20:48 97 10/31/17 20:00 98.7 67 20 122/58 (79) 100 10/31/17 12:00 97.8 69 18 109/52 (71) 97 I/O 10/31/17 10/31/17 10/31/17 11/01/17 11/01/17 11/01/17 07:00 15:00 23:00 07:00 15:00 23:00 Intake Total 1394 ml 240 ml 1949 ml Output Total 1000 ml 0 ml 2000 ml Balance 394 ml 240 ml 0 ml -51 ml Intake Oral 240 ml 960 ml IV Total 1394 ml 989 ml Output Urine Total 1000 ml 2000 ml Drainage Total 0 ml 0 ml 0 ml # Voids 5 # Bowel Movements 1 (Janette Vogt MD R1) Result Diagram: 11/01/17 0900 11/01/17 0900 Imaging Last Impressions Hip and Pelvis X-Ray 10/30/17 0000 Signed Impressions: Service Date/Time: Monday, October 30, 2017 16:36 - CONCLUSION: 1. There is no evidence of acute fracture. Gilson Avalos MD Elbow X-Ray 10/30/17 0000 Signed Impressions: Service Date/Time: Monday, October 30, 2017 10:24 - CONCLUSION: Intact postsurgical changes for technique. Karla Rueda MD Ankle X-Ray 10/30/17 0000 Signed Impressions: Service Date/Time: Monday, October 30, 2017 16:36 - CONCLUSION: Soft tissue swelling as above. If clinical symptoms persist followup examinations could be considered if clinically indicated. Gilson Avalos MD Chest X-Ray 10/29/17 1936 Signed Impressions: Service Date/Time: Sunday, October 29, 2017 20:10 - CONCLUSION: Possible mild case of pulmonary edema. Karla Rueda MD Upper Extremity CT 10/29/17 0000 Signed Impressions: Service Date/Time: Monday, October 30, 2017 00:56 - CONCLUSION: Highly comminuted distal humeral fracture as detailed above. Nader Love Jr., MD Shoulder X-Ray 10/29/17 0000 Signed Impressions: Service Date/Time: Sunday, October 29, 2017 20:08 - CONCLUSION: Unremarkable study. Karla Rueda MD Objective Remarks GEN: Thin, well-nourished elderly white female sitting up in bed, comfortable, NAD LUNGS: CTAB CV: NRRR, no MRG ABD: Soft, NDNT MSK: R arm wrapped in EDWIN bandage with wound vac draining sanguinous fluid. BLE without cyanosis or edema with SCDs in place Procedures ORIF R distal humerus: 10/30/17 (Janette Vogt MD R1) A/P Assessment and Plan 76 yr old F w/ PMHx of Alz's dementia and frequent falls presenting with: Discharge Planning to rehab once family agrees upon placement (Janette Vogt MD R1) Attending Attestation Patient seen and examined. Case reviewed and discussed with the resident team. Agree with plan of care as discussed with me and documented in the resident note. stable overall. happy she can go to rehab (Shanda Willett MD) Problem List: (1) Fracture, humerus, distal, open ICD Codes: S42.409B - Unspecified fracture of lower end of unspecified humerus , initial encounter for open fracture Status: Acute Plan: Elbow X-ray demonstrated comminuted and complex fracture dislocation. s/p right elbow reduction by ED physician s/p right ORIF on 10/30/17 * IV Tylenol q6h MISTI for pain * Oxycodone 5mg PO q4h for pain 3-5 * Oxycodone 10mg PO q4h for pain 6-10 * Orthopedics consulted, appreciate recs -NWB -maintain splint at all times -maintain vac -plan to DC vac at bedside tomorrow -CM for SNF placement -f/u with [facility] or [facility] in 2 weeks (2) VELMA (acute kidney injury) ICD Codes: N17.9 - Acute kidney failure, unspecified Status: Resolved Plan: Elevated BUN and Cr, probably pre-renal etiology. Baseline ~1.4 Continue to trend BMP Hydrate with IVF Continue renally dose meds Check CPK (3) Dementia ICD Codes: F03.90 - Unspecified dementia without behavioral disturbance Status: Chronic Plan: Continue home Donepezil 10mg PO hs (4) HTN (hypertension) ICD Codes: I10 - Essential (primary) hypertension Plan: Hold home lisinopril due to VELMA, DBP low (5) Depression ICD Codes: F32.9 - Major depressive disorder, single episode, unspecified Status: Chronic Plan: Continue home med: Citalopram 20mg PO daily, Mirtazapine 15mg PO hs (6) Anxiety ICD Codes: F41.9 - Anxiety disorder, unspecified Status: Chronic Plan: Tapered home buspar, continue lorazpeam at lower dose 0.5 mg PO bid PRN (7) Hypothyroidism ICD Codes: E03.9 - Hypothyroidism, unspecified Status: Chronic Plan: Continue home Levothyroxine 25 mcg PO daily (8) HLD (hyperlipidemia) ICD Codes: E78.5 - Hyperlipidemia, unspecified Status: Chronic Plan: Continue home atorvastatin 10mg PO hs (9) Nutrition, metabolism, and development symptoms ICD Codes: R63.8 - Other symptoms and signs concerning food and fluid intake Plan: Fluids: NS @ 100 cc/hr Elecs: Monitor and replete PRN Nutrition: Diet regular basic DVT: SCDs bilateral knee high Code status: FULL CODE (Janette Vogt MD R1) Problem Qualifiers (1) Fracture, humerus, distal, open: Qualified Codes: S42.491B - Other displaced fracture of lower end of right humerus, initial encounter for open fracture (2) Dementia: Qualified Codes: G30.1 - Alzheimer's disease with late onset; F02.80 - Dementia in other diseases classified elsewhere without behavioral disturbance (3) HTN (hypertension): Qualified Codes: I10 - Essential (primary) hypertension (4) Depression: Qualified Codes: F32.9 - Major depressive disorder, single episode, unspecified (5) Hypothyroidism: Qualified Codes: E03.9 - Hypothyroidism, unspecified (6) HLD (hyperlipidemia): Qualified Codes: E78.00 - Pure hypercholesterolemia, unspecified Janette Vogt MD R1 Nov 01, 2017 10:18 Shanda Willett MD Nov 03, 2017 13:45
[2017-11-01] MEDS: ATORVASTATIN 10 MG TAB PO SCH (20:46)
[2017-11-01] MEDS: DONEPEZIL HCL 5 MG TAB PO SCH (20:46)
[2017-11-01] MEDS: MIRTAZAPINE 15 MG TAB PO SCH (20:46)
[2017-11-02] VITALS: BP 160/74; PULSE 66; RESP 22; TEMP 98; O2SAT 98
[2017-11-02] MEDS: ALPRAZolam 0.5 MG TAB PO PRN ×2 (00:57→16:24)
[2017-11-02] MEDS: SODIUM CHLOR 0.9% 1000 ML INJ 1,000 ML IV SCH ×2 (03:00→12:29)
[2017-11-02] MEDS: ACETAMINOPHEN 1000 MG/100 ML 100 ML IV SCH ×3 (03:54→16:24)
[2017-11-02] MEDS: LEVOTHYROXINE SODIUM 25 MCG TAB PO SCH (03:54)
[2017-11-02 04:00] VITALS: BP 141/74; PULSE 75; RESP 22; TEMP 98.6; O2SAT 95
[2017-11-02 08:00] VITALS: BP 170/87; PULSE 85; RESP 17; TEMP 97.9; O2SAT 97
[2017-11-02 08:40] LABS: AUTOMATED NEUTROPHIL # 8.2 TH/MM3 (1.8-7.7); BASOPHIL # 0.2 TH/MM3 (0-0.2); BASOPHIL % 1.2 % (0.0-2.0); EOSINOPHIL # 0.3 TH/MM3 (0-0.4); EOSINOPHIL % 2.4 % (0.0-4.0); HEMATOCRIT 29.2 % (35.0-46.0); HEMOGLOBIN 10.1 GM/DL (11.6-15.3); LYMPH % 25.9 % (9.0-44.0); LYMPHOCYTE # 3.4 TH/MM3 (1.0-4.8); MEAN CELL VOLUME 91.8 FL (80.0-100.0); MEAN CORPUSCULAR HEMOGLOBIN 31.7 PG (27.0-34.0); MEAN CORPUSCULAR HGB CONC 34.5 % (32.0-36.0); MEAN PLATELET VOLUME 7.6 FL (7.0-11.0); MONO % 7.3 % (0.0-8.0); MONOCYTE # 0.9 TH/MM3 (0-0.9); NEUT % 63.2 % (16.0-70.0); PLATELET COUNT 306 TH/MM3 (150-450); RED BLOOD COUNT 3.18 MIL/MM3 (4.00-5.30); RED CELL DISTRIBUTION WIDTH 12.8 % (11.6-17.2)
[2017-11-02] MEDS: CALCIUM/VITAMIN D 250 MG/125 U TAB PO SCH (08:46)
[2017-11-02] MEDS: CHOLECALCIFEROL (VIT D3) 1000 UNIT TAB PO SCH (08:46)
[2017-11-02] MEDS: CITALOPRAM HYDROBROMIDE 20 MG TAB PO SCH (08:47)
[2017-11-02] MEDS: SODIUM CHLORIDE 0.9% FLUSH 10 ML FLUSH IV FLUSH SCH (08:47)
[2017-11-02] MEDS: DOCUSATE SODIUM 50 MG/SENNA 8.6 MG TAB PO SCH (08:47)
[2017-11-02 08:59] LABS: BICARBONATE 22.5 MEQ/L (21.0-32.0); CALCIUM 8.8 MG/DL (8.5-10.1); CREATININE 1.43 MG/DL (0.50-1.00)
[2017-11-02 12:03] VITALS: BP 138/75; PULSE 83; RESP 17; TEMP 97.9; O2SAT 93
--- NOTE | 2017-11-02 12:58 | PD.ORT.PN ---
Subjective Subjective Remarks POD 3 s/p ORIF right distal humerus and incision wound vac application awake and alert. doing well.reports minimal pain. Objective Vitals Vital Signs Date Time Temp Pulse Resp B/P (MAP) Pulse Ox O2 Delivery O2 Flow Rate FiO2 11/02/17 12:03 97.9 83 17 138/75 (96) 93 11/02/17 09:41 Room Air 11/02/17 08:00 97.9 85 17 170/87 (114) 97 11/02/17 04:00 98.6 75 22 141/74 (96) 95 11/02/17 00:00 98.0 66 22 160/74 (102) 98 11/01/17 20:00 98.3 72 20 139/67 (91) 97 11/01/17 18:57 Room Air 11/01/17 16:00 96.2 69 17 142/68 (92) 97 I/O 11/01/17 11/01/17 11/01/17 11/02/17 11/02/17 11/02/17 07:00 15:00 23:00 07:00 15:00 23:00 Intake Total 1949 ml 630 ml 200 ml 820 ml Output Total 2000 ml 600 ml 850 ml Balance -51 ml 30 ml 200 ml -30 ml Intake Oral 960 ml 480 ml 720 ml IV Total 989 ml 150 ml 200 ml 100 ml Output Urine Total 2000 ml 600 ml 850 ml Drainage Total 0 ml 0 ml # Bowel Movements 1 2 Result Diagram: 11/02/17 0804 11/02/17 0804 Imaging Last 24 hours Impressions Elbow X-Ray 10/29/17 2150 Signed Impressions: Service Date/Time: Sunday, October 29, 2017 22:01 - CONCLUSION: Partial reduction of previously seen overriding and dislocated fragments. Karla Rueda MD Chest X-Ray 10/29/17 1936 Signed Impressions: Service Date/Time: Sunday, October 29, 2017 20:10 - CONCLUSION: Possible mild case of pulmonary edema. Karla Rueda MD Objective Remarks RUE: +long arm splint. intact. full sensation to median/ulnar nerve distribution. +vac with good seal. vac removed and incision visualized. clean and dry. healing well. no evidence of erythema, drainage, or skin breakdown. Assessment & Plan Assessment and Plan 1) Right Distal Humerus Fx s/p ORIF - POD 3 -NWB -vac DCd at bedside today and soft dressings applied -orthotech to resplint -maintain splint at all times -ortho cleared for DC to SNF -CM for SNF placement -f/u with [facility] or [facility] in 2 weeks Kam Castle/First Andrade MICHAEL Nov 02, 2017 12:58
[2017-11-02] MEDS: ACETAMINOPHEN/HYDROcodone 325 MG/5 MG TAB PO PRN ×2 (14:21→19:28)
--- NOTE | 2017-11-02 15:52 | HHI.DCPOC ---
Discharge Care Plan Diagnosis: (1) Fracture, humerus, distal, open Goals to Promote Your Health * To prevent worsening of your condition and complications * To maintain your health at the optimal level Directions to Meet Your Goals Take your medications as prescribed Follow your dietary instruction Follow activity as directed Keep your appointments as scheduled Take your immunizations and boosters as scheduled If your symptoms worsen call your PCP, if no PCP go to Urgent Care Center or Emergency Room Smoking is Dangerous to Your Health. Avoid second hand smoke Call the 24-hour hour crisis hotline for domestic abuse at Janette Vogt MD R1 Nov 02, 2017 15:52
[2017-11-02] MEDS ORDERED: XANA1TAB2 PO (16:07)
[2017-11-02] MEDS ORDERED: BUSP10TA PO (16:07)
[2017-11-02 16:24] VITALS: BP 145/88; PULSE 72; RESP 18; TEMP 96.6; O2SAT 95
[2017-11-02] MEDS ORDERED: ALPR0.5T3 PO (16:27)
--- NOTE | 2017-11-02 16:55 | HHI.FPPN ---
Subjective Remarks No acute events overnight. Feeling well this morning. Has some right arm pain, denies chest pain, shortness breath, abdominal pain. Tolerating physical therapy well. (Chalino Cleaning MD) Objective Vitals Vital Signs Date Time Temp Pulse Resp B/P (MAP) Pulse Ox O2 Delivery O2 Flow Rate FiO2 11/02/17 16:24 96.6 72 18 145/88 (107) 95 11/02/17 12:03 97.9 83 17 138/75 (96) 93 11/02/17 09:41 Room Air 11/02/17 08:00 97.9 85 17 170/87 (114) 97 11/02/17 04:00 98.6 75 22 141/74 (96) 95 11/02/17 00:00 98.0 66 22 160/74 (102) 98 11/01/17 20:00 98.3 72 20 139/67 (91) 97 11/01/17 18:57 Room Air I/O 11/01/17 11/01/17 11/01/17 11/02/17 11/02/17 11/02/17 07:00 15:00 23:00 07:00 15:00 23:00 Intake Total 1949 ml 630 ml 200 ml 820 ml 350 ml Output Total 2000 ml 600 ml 850 ml 700 ml Balance -51 ml 30 ml 200 ml -30 ml -350 ml Intake Oral 960 ml 480 ml 720 ml 350 ml IV Total 989 ml 150 ml 200 ml 100 ml Output Urine Total 2000 ml 600 ml 850 ml 700 ml Drainage Total 0 ml 0 ml # Bowel Movements 1 2 2 (Chalino Cleaning MD) Result Diagram: 11/02/17 0804 11/02/17 0804 Imaging Last Impressions Hip and Pelvis X-Ray 10/30/17 0000 Signed Impressions: Service Date/Time: Monday, October 30, 2017 16:36 - CONCLUSION: 1. There is no evidence of acute fracture. Gilson Avalos MD Elbow X-Ray 10/30/17 0000 Signed Impressions: Service Date/Time: Monday, October 30, 2017 10:24 - CONCLUSION: Intact postsurgical changes for technique. Krala Rueda MD Ankle X-Ray 10/30/17 0000 Signed Impressions: Service Date/Time: Monday, October 30, 2017 16:36 - CONCLUSION: Soft tissue swelling as above. If clinical symptoms persist followup examinations could be considered if clinically indicated. Gilson Avalos MD Chest X-Ray 10/29/17 193 Signed Impressions: Service Date/Time: Sunday, October 29, 2017 20:10 - CONCLUSION: Possible mild case of pulmonary edema. Karla Rueda MD Upper Extremity CT 10/29/17 0000 Signed Impressions: Service Date/Time: Monday, October 30, 2017 00:56 - CONCLUSION: Highly comminuted distal humeral fracture as detailed above. Nader Love Jr., MD Shoulder X-Ray 10/29/17 0000 Signed Impressions: Service Date/Time: Sunday, October 29, 2017 20:08 - CONCLUSION: Unremarkable study. Karla Rueda MD Objective Remarks GEN: Thin, well-nourished elderly white female sitting up in bed, comfortable, NAD LUNGS: CTAB CV: NRRR, no MRG ABD: Soft, NDNT MSK: R arm wrapped in EDWIN bandage with wound vac draining sanguinous fluid. BLE without edema; SCDs in place Procedures ORIF R distal humerus: 10/30/17 Medications and IVs Current Medications Medications (Trade) Dose Ordered Sig/Lauren Route Start Time Stop Time Status Last Admin (Aspirin) 325 mg DAILY PO 10/30/17 09:00 Future Hold (Lipitor) 10 mg HS PO 10/30/17 21:00 11/01/17 20:46 (CeleXA) 20 mg DAILY PO 10/30/17 09:00 11/02/17 08:47 (Synthroid) 25 mcg DAILY@0600 PO 10/30/17 06:00 11/02/17 03:54 (Remeron) 15 mg HS PO 10/30/17 21:00 11/01/17 20:46 (Aricept) 10 mg HS PO 10/30/17 21:00 11/01/17 20:46 (NS Flush) 2 ml UNSCH PRN IV FLUSH 10/29/17 22:00 (NS Flush) 2 ml BID IV FLUSH 10/30/17 09:00 11/02/17 08:47 (Zofran Inj) 4 mg Q6H PRN IVP 10/29/17 22:00 11/01/17 20:45 (Narcan Inj) 0.4 mg UNSCH PRN IV PUSH 10/29/17 22:00 (Irais-Colace) 1 tab BID PO 10/30/17 09:00 11/02/17 08:47 (Milk Of Magnesia Liq) 30 ml Q12H PRN PO 10/29/17 22:00 (Senokot) 17.2 mg Q12H PRN PO 10/29/17 22:00 (Dulcolax Supp) 10 mg DAILY PRN RECTAL 10/29/17 22:00 (Lactulose Liq) 30 ml DAILY PRN PO 10/29/17 22:00 Acetaminophen 100 ml @ 400 mls/hr Q6H IV 10/29/17 22:00 11/02/17 16:24 ([place] 5-325 Mg) 1 tab Q3H PRN PO 10/30/17 11:00 11/02/17 14:21 (Oscal-D 250-125) 250 mg Q12HR PO 10/30/17 21:00 11/02/17 08:46 (Vitamin D3) 1,000 units DAILY PO 10/31/17 09:00 11/02/17 08:46 (Xanax) 0.5 mg BID PRN PO 10/30/17 14:45 11/02/17 16:24 Sodium Chloride 1,000 ml @ 100 mls/hr Q10H IV 10/31/17 11:00 10/31/17 11:00 (Chalino Cleaning MD) A/P Assessment and Plan 76 yr old F w/ PMHx of Alz's dementia and frequent falls presenting with: (Cahlino Cleaning MD) Attending Attestation Patient seen and examined. Case reviewed and discussed with the resident team. Agree with plan of care as discussed with me and documented in the resident note. she is happy to go to rehab (Shanda Willett MD) Problem List: (1) Fracture, humerus, distal, open ICD Codes: S42.409B - Unspecified fracture of lower end of unspecified humerus , initial encounter for open fracture Status: Acute Plan: Elbow X-ray demonstrated comminuted and complex fracture dislocation. s/p right elbow reduction by ED physician s/p right ORIF on 10/30/17 * IV Tylenol q6h LAUREN for pain * Oxycodone 5mg PO q4h for pain 3-5 * Oxycodone 10mg PO q4h for pain 6-10 * Orthopedics consulted, appreciate recs -Cleared for D/C -NWB RUE -maintain splint at all times -vac D/C'd at bedside -[place] PRN for pain control on discharge -f/u with [facility] or [facility] in 2 weeks (2) VELMA (acute kidney injury) ICD Codes: N17.9 - Acute kidney failure, unspecified Status: Resolved Plan: Elevated BUN and Cr, probably pre-renal etiology. Baseline ~1.4 Cr now around baseline CPK was mildly elevated at 272 Encourage hydration on discharge F/u with PCP (3) Dementia ICD Codes: F03.90 - Unspecified dementia without behavioral disturbance Status: Chronic Plan: Continue home Donepezil 10mg PO hs (4) HTN (hypertension) ICD Codes: I10 - Essential (primary) hypertension Plan: Hold home lisinopril due to VELMA, DBP low (5) Depression ICD Codes: F32.9 - Major depressive disorder, single episode, unspecified Status: Chronic Plan: Continue home med: Citalopram 20mg PO daily, Mirtazapine 15mg PO hs (6) Anxiety ICD Codes: F41.9 - Anxiety disorder, unspecified Status: Chronic Plan: Tapered home buspar, continue lorazpeam at lower dose 0.5 mg PO bid PRN (7) Hypothyroidism ICD Codes: E03.9 - Hypothyroidism, unspecified Status: Chronic Plan: Continue home Levothyroxine 25 mcg PO daily (8) HLD (hyperlipidemia) ICD Codes: E78.5 - Hyperlipidemia, unspecified Status: Chronic Plan: Continue home atorvastatin 10mg PO hs (9) Nutrition, metabolism, and development symptoms ICD Codes: R63.8 - Other symptoms and signs concerning food and fluid intake Plan: Fluids: NS @ 100 cc/hr while hospitalized Elecs: Monitor and replete PRN Nutrition: Diet regular basic DVT: SCDs bilateral knee high Code status: FULL CODE Dispo: To SNF rehab today (Chalino Cleaning MD) Problem Qualifiers (1) Fracture, humerus, distal, open: Qualified Codes: S42.491B - Other displaced fracture of lower end of right humerus, initial encounter for open fracture (2) Dementia: Qualified Codes: G30.1 - Alzheimer's disease with late onset; F02.80 - Dementia in other diseases classified elsewhere without behavioral disturbance (3) HTN (hypertension): Qualified Codes: I10 - Essential (primary) hypertension (4) Depression: Qualified Codes: F32.9 - Major depressive disorder, single episode, unspecified (5) Hypothyroidism: Qualified Codes: E03.9 - Hypothyroidism, unspecified (6) HLD (hyperlipidemia): Qualified Codes: E78.00 - Pure hypercholesterolemia, unspecified Chalino Cleaning MD Nov 02, 2017 16:55 Shanda Willett MD Nov 04, 2017 13:27
[2017-11-02 18:10] VITALS: O2SAT 95
--- NOTE | 2017-11-02 20:27 | HHI.DS ---
Discharge Summary Admission Date Oct 29, 2017 at 21:59 Discharge Date: Nov 02, 2017 Admitting Diagnosis open distal humerus fracture, renal insuffiency (1) Fracture, humerus, distal, open Plan: Elbow X-ray demonstrated comminuted and complex fracture dislocation. s/p right elbow reduction by ED physician s/p right ORIF on 10/30/17 * IV Tylenol q6h MISTI for pain * Oxycodone 5mg PO q4h for pain 3-5 * Oxycodone 10mg PO q4h for pain 6-10 * Orthopedics consulted, appreciate recs -Cleared for D/C -NWB RUE -maintain splint at all times -vac D/C'd at bedside -[place] PRN for pain control on discharge -f/u with [facility] or [facility] in 2 weeks ICD Codes: S42.409B - Unspecified fracture of lower end of unspecified humerus , initial encounter for open fracture Status: Acute (2) VELMA (acute kidney injury) Plan: Elevated BUN and Cr, probably pre-renal etiology. Baseline ~1.4 Cr now around baseline CPK was mildly elevated at 272 Encourage hydration on discharge F/u with PCP ICD Codes: N17.9 - Acute kidney failure, unspecified Status: Resolved (3) Dementia Plan: Continue home Donepezil 10mg PO hs ICD Codes: F03.90 - Unspecified dementia without behavioral disturbance Status: Chronic (4) HTN (hypertension) Plan: Hold home lisinopril due to VELMA, DBP low ICD Codes: I10 - Essential (primary) hypertension (5) Depression Plan: Continue home med: Citalopram 20mg PO daily, Mirtazapine 15mg PO hs ICD Codes: F32.9 - Major depressive disorder, single episode, unspecified Status: Chronic (6) Anxiety Plan: Tapered home buspar, continue lorazpeam at lower dose 0.5 mg PO bid PRN ICD Codes: F41.9 - Anxiety disorder, unspecified Status: Chronic (7) Hypothyroidism Plan: Continue home Levothyroxine 25 mcg PO daily ICD Codes: E03.9 - Hypothyroidism, unspecified Status: Chronic (8) HLD (hyperlipidemia) Plan: Continue home atorvastatin 10mg PO hs ICD Codes: E78.5 - Hyperlipidemia, unspecified Status: Chronic (9) Nutrition, metabolism, and development symptoms Plan: Fluids: NS @ 100 cc/hr while hospitalized Elecs: Monitor and replete PRN Nutrition: Diet regular basic DVT: SCDs bilateral knee high Code status: FULL CODE Dispo: To SNF rehab today ICD Codes: R63.8 - Other symptoms and signs concerning food and fluid intake Procedures ORIF R distal humerus: 10/30/17 Brief History Ms Leslie is a 76 yr old F w/ PMHx of Alz's dementia,frequent falls, depression , and HTN presented to the ED via [facility] due to fall. Accompanied by daughter and niece. Limited history provided by patient due to dementia. Rest of the history provided by family. She reports that she was getting out of the car when she slipped and fell on the road. She is unsure how she fell. She has a bruise on her face, pain in her right arm, and scrapes on her right knee. She is able to wiggle her right fingers and has intact sensation. She denies LOC or hitting her head. She endorses slight HOYT. She denies vision changes, CP, N/V, SOB, and abdominal pain. Last meal was around 1300. Niece states that she has a hx of intermittent leg weakness and suspects this is the cause of the incident. She had a CVA last July and has not been the same as far as her functioning. She has variable but at times profound weakness. Today she was seen post op and was complaining of pain in her left hip and right ankle as well as her arm. Discussed with her niece and daughter that she was on multiple meds and she had orthostatic sounding sxs. CBC/BMP: 11/02/17 0804 11/02/17 0804 Significant Findings Laboratory Tests Test 10/31/17 14:22 11/01/17 09:00 11/02/17 08:04 Blood Urea Nitrogen 30 MG/DL (7-18) 28 MG/DL (7-18) 23 MG/DL (7-18) Creatinine 1.98 MG/DL (0.50-1.00) 1.65 MG/DL (0.50-1.00) 1.43 MG/DL (0.50-1.00) Random Glucose 145 MG/DL (74-106) Calcium Level 8.2 MG/DL (8.5-10.1) Sodium Level 135 MEQ/L (136-145) Estimat Glomerular Filtration Rate 24 ML/MIN (>89) 30 ML/MIN (>89) 35 ML/MIN (>89) Total Creatine Kinase 272 U/L (26-192) White Blood Count 12.4 TH/MM3 (4.0-11.0) 13.0 TH/MM3 (4.0-11.0) Red Blood Count 3.36 MIL/MM3 (4.00-5.30) 3.18 MIL/MM3 (4.00-5.30) Hemoglobin 10.3 GM/DL (11.6-15.3) 10.1 GM/DL (11.6-15.3) Hematocrit 31.0 % (35.0-46.0) 29.2 % (35.0-46.0) Neutrophils # (Auto) 8.2 TH/MM3 (1.8-7.7) PE at Discharge GEN: Thin, well-nourished elderly white female sitting up in bed, comfortable, NAD LUNGS: CTAB CV: NRRR, no MRG ABD: Soft, NDNT MSK: R arm wrapped in EDWIN bandage with wound vac draining sanguinous fluid. BLE without edema; SCDs in place Hospital Course Mrs. Leslie is a 76yo dementia and figure falls presenting to the ED after a fall exiting her car. She obtain an open fracture of her right elbow. Elbow x- ray showed a comminuted and complex fracture dislocation. Orthopedic surgery was consult to include who conducted an irrigation and debridement of the open fracture. They also did an ORIF of her right distal humerus. Both PT and OT recommended rehabilitation. After clearance by orthopedic surgery she was then discharged to rehabilitation. Pt Condition on Discharge: Stable Discharge Disposition: Discharge to SNF Discharge Instructions DIET: Follow Instructions for: As Tolerated, No Restrictions Activities you can perform: Regular-No Restrictions, Weight Bearing as Kofi Follow up Referrals: Orthopedics - 2 Weeks @ [facility] with Iggy Veliz MD PCP Follow-up - 1 Week New Medications: Alprazolam (Alprazolam) 0.5 Mg Tab 0.5 MG PO BID PRN for ANXIETY, #60 TAB 0 Refills Calcium Carbonate-Vitamin D (Calcium 600+D 200) 600-200 Mg-Unit Tab 1 TAB PO BID for Nutritional Supplement for 30 Days, #60 TAB 0 Refills Cholecalciferol (Vitamin D3) 2,000 Unit Cap 2000 UNITS PO DAILY for Nutritional Supplement for 30 Days, CAP 0 Refills Ergocalciferol (Ergocalciferol) 50,000 Unit Cap 39393 UNITS PO Q7D for Nutritional Supplement, #6 CAP Hydrocodone-Acetaminophen (Hydrocodone-Acetaminophen) 7.5 Mg-325 Mg Tab 1 TAB PO Q4H PRN for PAIN, #60 TAB 0 Refills Continued Medications: Aspirin (Aspirin) 325 Mg Tab 325 MG PO DAILY, #30 TAB 0 Refills Atorvastatin (Lipitor) 10 Mg Tab 10 MG PO HS for Cholesterol Management, #30 TAB 0 Refills Bisacodyl Supp (Dulcolax Supp) 10 Mg Supp 10 MG RECTAL DAILY PRN for IF NO BM X 3 DAYS, #12 SUPP 0 Refills Citalopram (Celexa) 20 Mg Tab 20 MG PO DAILY for Control Depression, #30 TAB 0 Refills Dextromethorphan-Guaifenesin (Robafen Dm 100-10 mg/5Ml) 100 Mg-10 Mg/5 Ml Syp 10 ML PO Q6HR PRN for COUGH Donepezil HCl (Aricept) 10 Mg Tablet 10 MG PO HS Levothyroxine (Synthroid) 25 Mcg Tab 25 MCG PO DAILY for Thyroid, #30 TAB 0 Refills Lisinopril (Lisinopril) 10 Mg Tab 10 MG PO DAILY, #30 TAB 0 Refills Magnesium Hydroxide Liq (Milk of Magnesia Liq) 400 Mg/5 Ml Susp 30 ML PO PRN for IF NO BM IN 3 DAYS, #1 BOTTLE 0 Refills Meclizine (Meclizine) 12.5 Mg Tab 12.5 MG PO BID for 21 Days, #42 TAB 0 Refills Mirtazapine (Remeron) 15 Mg Tab 15 MG PO HS for Depression Control, #30 TAB 0 Refills Promethazine (Phenergan) 25 Mg Tablet 25 MG PO TID PRN for NAUSEA OR VOMITING, TAB 0 Refills Sodium Phosphates (Enema Disposable) 19 Gram-7 Gram/118 Ml Yue 1 APPLIC RECTAL ON 4TH DAY PRN for IF NO RESULTS FROM DULCOLAX Discontinued Medications: Buspirone (Buspirone) 10 Mg Tab 10 MG PO BID for Anxiety, #60 TAB 0 Refills Hydrocodone-Acetaminophen ([place]) 5 Mg-325 Mg Tab 1 TAB PO Q6H PRN for PAIN, TAB 0 Refills Janette Vogt MD R1 Nov 02, 2017 20:27
== END 2017-11-02 20:08 | DRG 493 ==
LOC: NEPD 18:58 → NEDA 21:19 → OBSVTOIN 21:59 → N06B 22:26
PROVIDERS: ADMIT Family Medicine; ATTEND Family Medicine
PROC: 0PSFXZZ Reposition Right Humeral Shaft, External Approach (ICD-10-PCS; 2017-10-29)
PROC: 0PSF04Z Reposition Right Humeral Shaft with Internal Fixation Device, Open Approach (ICD-10-PCS; principal; 2017-10-30 08:33)
DX: S42.401B Unspecified fracture of lower end of right humerus, initial encounter for open fracture (principal); N17.9 Acute kidney failure, unspecified; G30.1 Alzheimer's disease with late onset; I69.398 Other sequelae of cerebral infarction; F02.80 Dementia in other diseases classified elsewhere, unspecified severity, without behavioral disturbance, psychotic disturbance, mood disturbance, and anxiety; R53.1 Weakness; I10 Essential (primary) hypertension; E03.9 Hypothyroidism, unspecified; E78.5 Hyperlipidemia, unspecified; R29.6 Repeated falls; F32.9 Major depressive disorder, single episode, unspecified; F41.9 Anxiety disorder, unspecified; W01.0XXA Fall on same level from slipping, tripping and stumbling without subsequent striking against object, initial encounter; Y92.89 Other specified places as the place of occurrence of the external cause; Z87.891 Personal history of nicotine dependence; Z91.81 History of falling; Z88.5 Allergy status to narcotic agent; Z88.0 Allergy status to penicillin
CPT/HCPCS: 24600; 71045; 73020; 73070; 73080; 73200; 73502; 73600; 76000; 80048; 82550; 82552; 85025; 85027; 85610; 85730; 90471; 90715; 93005; 94150; C1713; J0131; J0690; J1100; J1580; J2250; J2405; J3010; J3370; J7030; J7120